=== PATIENT | female | born 1945 | race Caucasian/White ===

== ENCOUNTER → 2020-05-29 10:14 | Outpatient (CLI) | payer MEDICARE, SELFPAY | PROVIDERS: PCP Family Medicine; Referring Provider Ophthalmology; Visit Provider Ophthalmology | DX: H04.123 Dry eye syndrome of bilateral lacrimal glands (principal) | CPT/HCPCS: 36415 ==

== ENCOUNTER → 2020-09-20 10:40 | Outpatient (CLI) | payer MEDICARE, SELFPAY | LOC: PAVLAB 11:01 → LAB 11:03 | PROVIDERS: PCP Family Medicine; Referring Provider Ophthalmology; Visit Provider Ophthalmology | DX: H04.123 Dry eye syndrome of bilateral lacrimal glands (principal) | CPT/HCPCS: 36415 ==

== ENCOUNTER → 2021-02-13 10:10 | Outpatient (CLI) | payer MEDICARE, SELFPAY | PROVIDERS: PCP Family Medicine; Referring Provider Ophthalmology; Visit Provider Ophthalmology | DX: H04.123 Dry eye syndrome of bilateral lacrimal glands (principal) | CPT/HCPCS: 36415 ==

== ENCOUNTER 2021-06-25 09:39 | Outpatient (CLI) | payer MEDICARE, SELFPAY | END 2021-06-25 23:59 | disposition home or self-care (01) | LOC: LAB 09:40 | PROVIDERS: PCP Family Medicine; Referring Provider Ophthalmology; Visit Provider Ophthalmology | DX: H04.123 Dry eye syndrome of bilateral lacrimal glands (principal) | CPT/HCPCS: 36415 ==

== ENCOUNTER → 2021-11-01 | Outpatient (CLI) | payer MEDICARE, SELFPAY | END | disposition home or self-care (01) | LOC: LAB 10:23 | PROVIDERS: PCP Family Medicine; Referring Provider Ophthalmology; Visit Provider Ophthalmology | DX: H04.123 Dry eye syndrome of bilateral lacrimal glands (principal) | CPT/HCPCS: 36415 ==

== ENCOUNTER → 2022-03-20 | Outpatient (CLI) | payer MEDICARE, SELFPAY | END | disposition home or self-care (01) | LOC: LAB 09:48 | PROVIDERS: PCP Family Medicine; Visit Provider Ophthalmology | DX: Z01.00 Encounter for examination of eyes and vision without abnormal findings (principal) | CPT/HCPCS: 36415 ==

== ENCOUNTER → 2022-08-12 | Outpatient (CLI) | payer MEDICARE, SELFPAY | END | disposition home or self-care (01) | LOC: LAB 09:30 | PROVIDERS: PCP Family Medicine; Referring Provider Ophthalmology; Visit Provider Ophthalmology | DX: Z79.899 Other long term (current) drug therapy (principal) | CPT/HCPCS: 36415 ==

== ENCOUNTER 2022-12-24 10:08 | Outpatient (CLI) | payer MEDICARE, SELFPAY | END 2022-12-24 23:59 | disposition home or self-care (01) | LOC: LAB 10:09 | PROVIDERS: PCP Family Medicine; Referring Provider Ophthalmology; Visit Provider Ophthalmology | DX: H04.123 Dry eye syndrome of bilateral lacrimal glands (principal) ==

== ENCOUNTER → 2023-09-29 | Outpatient (CLI) | payer SELFPAY ==
[2023-09-29 11:41] LABS: SERUM TEARS COLLECTION SPECIMEN PROCESSED
== END | disposition home or self-care (01) ==
PROVIDERS: PCP Family Medicine; Referring Provider Ophthalmology; Visit Provider Ophthalmology
DX: H04.123 Dry eye syndrome of bilateral lacrimal glands (principal)
CPT/HCPCS: 36415

== ENCOUNTER → 2024-01-29 | Outpatient (CLI) | payer SELFPAY ==
[2024-01-29 12:09] LABS: SERUM TEARS COLLECTION SPECIMEN PROCESSED
== END | disposition home or self-care (01) ==
PROVIDERS: PCP Family Medicine; Referring Provider Ophthalmology; Visit Provider Ophthalmology
DX: H04.123 Dry eye syndrome of bilateral lacrimal glands (principal)
CPT/HCPCS: 36415

== ENCOUNTER → 2024-06-23 | Outpatient (CLI) | payer SELFPAY ==
[2024-06-23 11:58] LABS: SERUM TEARS COLLECTION SPECIMEN PROCESSED
== END | disposition home or self-care (01) ==
PROVIDERS: PCP Family Medicine; Referring Provider Ophthalmology; Visit Provider Ophthalmology
DX: Z00.00 Encounter for general adult medical examination without abnormal findings (principal)

== ENCOUNTER 2024-09-22 05:45 | Day surgery (SDC) | payer MEDICARE, SELFPAY ==
[2024-09-22] VITALS (7 sets, daily range): BP systolic 106–155; BP diastolic 69–81; PULSE 77–85; RESP 16–18; TEMP 36.4–37.1; O2SAT 97–100; BMI 21.4
--- OUTSIDE RECORDS SUMMARY | 2024-09-22 05:47 | XMS RPT_ITS | CCD ---
Author Organization [facility] Care Team Providers Care Library Cataloging Technician Name Role Phone MACI MACARIO DO Primary Care Physician [phone] MACI MACARIO DO Attending Unavailable MACI MACARIO DO Primary Care Unavailable MACI MACARIO DO Attending Unavailable MACI MACARIO DO Primary Care Unavailable MACI MACARIO DO Attending Unavailable MACI MACARIO DO Primary Care Unavailable MACI MACARIO DO Attending Unavailable MACI MACARIO DO Primary Care Unavailable MACI MACARIO DO Primary Care Physician [phone] MACI MACARIO DO Attending Unavailable AMIRAH NOBLE, MACI Primary Care Unavailable MACI MACARIO DO Attending Unavailable AMIRAH NOBLE, MACI Primary Care Unavailable MACI MACARIO DO Primary Care Unavailable ARA MCCARTHY Attending Unavailable Dr. Maci Macario DO Primary Care Provider [phone] Dr. Heath Baum MD Attending Provider Dr. Heath Baum MD Referring Provider [phone] Maci Macario Primary Care Unavailable Heath Baum Attending Unavailable Heath Baum Referring Unavailable Amirah, Maci Primary Care Unavailable Heath Baum Attending Unavailable Heath Baum Referring Unavailable Amirah, Maci Primary Care Unavailable Amirah, Maci Referring Unavailable Flakito Cloud Attending Unavailable Merry Vang Attending Unavailable Amirah, Maci Primary Care Unavailable Amirah, Maci Referring Unavailable Amirah Maci Primary Care Unavailable Heath Baum Attending Unavailable Heath Baum Referring Unavailable Allergies Allergy Classification Reported Allergen(s) Allergy Type Date of Onset Reaction(s) Facility (14 sources) Ciprofloxacin; Translations: [ciprofloxacin] Drug Allergy 08-16-19 17 Unknown, pseudomembrane colitis [facility] (15 sources) Penicillins; Translations: [penicillins] Drug allergy 08-16-19 17 Unknown, facial swelling [facility] (10 sources) Sulfonamides (Antibiotic); Translations: [sulfa drugs] Drug allergy vomiting, nausea [facility] (5 sources) Sulfonamides (Antibiotic); Translations: [Sulfa (Sulfonamide Antibiotics)] Allergy to substance 08-16-19 Unknown [facility] (1 source) Ciprofloxacin Drug Allergy 09-17-19 [facility] Repository Medications Current Medications Medication Drug Class(es) Dates Sig (Normalized) Sig (Original) acetaminophen 500 mg oral tablet (2 sources) Start: 06-10-2022 Tylenol Extra Strength 500 mg oral tablet Dose : 1,000 mg = 2 tab(s), Oral, TID, PRN as needed for pain Start Date: 06/10/22 Status: Ordered Start: 04-30-2022 End: 05-14-2022 take 1 tablet by mouth once daily acetaminophen 500 mg oral tablet Dose : 1,000 mg = 2 tab(s), Oral, TID, PRN as needed for pain, not to exceed 3000 mg/day, # 100 tab(s), 0 Refill(s), 05/14/22 6:52:00 EST, [facility]: [facility] #[id number], 167.6, cm, 04/29/22 13:19:00 EST, Height Start Date: 04/30/22 Stop Date: 05/14/22 Status: Ordered acetaminophen 250 mg / aspirin 250 mg / caffeine 65 mg oral tablet (6 sources) Platelet Aggregation Inhibitor, Nonsteroidal Anti-inflammatory Drug, Central Nervous System Stimulant, Methylxanthine Start: 06-30-2023 take 1 tablet by mouth every six hours as needed for headache Excedrin Extra Strength oral tab (250/250/65) Dose = 2 tab(s), Oral, q6hr, PRN for headache, # 50 tab(s), 0 Refill(s) Start Date: 06/30/23 Status: Ordered Start: 06-08-2017 take 1 tablet by yoni th every six hours as needed for headache Excedrin Extra Strength oral tab (250/250/65) Dose = 2 tab(s), Oral, q6h, PRN for headache, 0 Refill(s) Start Date: 06/08/17 Status: Ordered [id number] 200 actuat albuterol 0.09 mg/actuat metered dose inhaler (10 sources) beta2-Adrenergic Agonist Start: 01-29-2019 take 2 puff(s) by inhalation every six hours as needed for wheezing ProAir HFA MDI (90 mcg/inh) inhalation aerosol 2 puff(s), Inhalation, q6hr, PRN as needed for wheezing, 0 Refill(s) Start Date: 01/29/19 Status: Ordered Start: 01-29-2019 ProAir HFA MDI (90 mcg/inh) inhalation aerosol 0 Refill(s) Start Date: 01/29/19 Status: Ordered Start: 01-29-2019 ProAir HFA MDI (90 mcg/inh) inhalation aerosol 0 Refill(s) Start Date: 01/29/19 Status: Ordered aspirin 81 mg delayed release oral tablet (1 source) Platelet Aggregation Inhibitor, Nonsteroidal Anti-inflammatory Drug Start: 04-30-2022 End: 05-30-2022 take 1 tablet by mouth twice daily aspirin 81 mg oral delayed release tablet Dose : 81 mg = 1 tab(s), Oral, BID, Take 81 mg aspirin twice daily with food for 4 weeks postoperatively for DVT prophylaxis., # 60 tab(s), 0 Refill(s), [facility]: [facility] #[id number], 167.6, cm, 04/29/22 13:19:00 EST, Height Start Date: 04/30/22 Stop Date: 05/30/22 Status: Ordered Biotin (9 sources) Start: 09-17-2021 take 1 dose by mouth once daily biotin Dose : 1,000 mcg =, Oral, qDay, 0 Refill(s) Start Date: 09/17/21 Status: Ordered Start: 09-17-2021 biotin Oral, q Day, 0 Refill(s) Start Date: 09/17/21 Status: Ordered Clobetasol (9 sources) Corticosteroid Start: 09-17-2021 Clobetasol (Eqv-Temovate) 0.05% topical cream apply to affected area twice a day for 2 weeks WHEN FLARED, THEN USE 3 NIGHTS PER WEEK NEEDED Start Date: 09/17/21 Status: Ordered cyclobenzaprine hydrochloride 10 mg oral tablet (1 source) Muscle Relaxant Start: 02-01-2020 cyclobenzaprine 10 mg oral tablet Dose : 10 mg = 1 tab(s), Oral, TID, PRN for muscle spasm, 0 Refill(s) Start Date: 02/01/20 Status: Ordered dexamethasone 0.001 mg/mg / neomycin 0.0035 mg/mg / polymyxin b 10 unt/mg ophthalmic ointment (1 source) Aminoglycoside Antibacterial, Polymyxin-class Antibacterial, Corticosteroid Start: 04-29-2022 apply 1 dose into the eye(s) three times daily dexamethasone/neomyc in/polymyxin B 1 mg-3.5 mg-10,000 units/g ophthalmic ointment Dose = 1 walter, Ophthalmic, TID, 0 Refill(s) Start Date: 04/29/22 Status: Ordered docusate sodium 50 mg / sennosides, correction 8.6 mg oral tablet (1 source) Start: 04-30-2022 End: 05-03-2022 take 1 tablet by mouth twice daily Senokot S 50 mg-8.6 mg oral tablet Dose = 2 tab(s), Oral, BID, Take until first bowel movement, then as needed, X 3 day(s), # 12 tab(s), 0 Refill(s), Pharmacy: [facility] #[id number], 167.6, cm, 04/29/22 13:19:00 EST, Height Start Date: 04/30/22 Stop Date: 05/03/22 Status: Ordered erythromycin 0.005 mg/mg ophthalmic ointment (2 sources) Macrolide, Macrolide Antimicrobial Start: 06-30-2023 erythromycin 0.5% ophthalmic ointment 0 Refill(s) Start Date: 06/30/23 Status: Ordered esomeprazole 20 mg delayed release oral capsule (5 sources) Proton Pump Inhibitor Start: 12-12-2021 NexIUM 24HR 20 mg oral delayed release capsule Dose : 20 mg = 1 cap(s), Oral, qDay, 0 Refill(s) Start Date: 12/12/21 Status: Ordered fenofibrate 145 mg oral tablet (10 sources) Peroxisome Proliferator Receptor alpha Agonist Start: 06-30-2023 fenofibrate 145 mg oral tablet Dose : 145 mg = 1 tab(s), Oral, qDay, # 90 tab(s), 3 Refill(s), Pharmacy: [facility] #[id number], Hyperlipidemia, 167, cm, 06/30/23 11:05:00 EDT, Height, kg, 06/30/23 11:05:00 EDT, Dosing Weight Start Date: 06/30/23 Status: Ordered Start: 12-16-2022 fenofibrate 14 5 mg oral tablet Dose : 145 mg = 1 tab(s), Oral, qDay, # 90 tab(s), 1 Refill(s), Pharmacy: [facility] #[id number], Hyperlipidemia, 167.5, cm, 12/16/22 9:55:00 EDT, Height, kg, 12/16/22 9:55:00 EDT, Dosing Weight Start Date: 12/16/22 Status: Ordered Start: 08-21-2021 End: 07-22-2022 fenofibrate 145 mg oral tabl et Dose : 145 mg = 1 tab(s), Oral, with supper Start Date: 06/10/22 Status: Ordered Start: 02-18-2021 End: 03-20-2021 fenofibrate 145 mg oral tabl et Dose : 145 mg = 1 tab(s), Oral, qDay, # 30 tab(s), 0 Refill(s), [facility]acy: [facility] Hyperlipidemia, 168, cm, 12/11/20 13:21:00 EDT, Height, kg, 12/11/20 13:21:00 EDT, Dosing Weight Start Date: 02/18/21 Stop Date: 03/20/21 Status: Ordered fluticasone propionate 0.05 mg/actuat metered dose nasal spray (13 sources) Corticosteroid Start: 12-22-2023 take 1 dose nasal route twice daily fluticasone proprionate NASAL 50 mcg/ spray Dose = 1 spray(s), Nostril, each, BID, # 16 gram(s), 5 Refill(s), Pharmacy: [facility]/pharmacy #[id number], Seasonal allergies, 167.3, cm, 12/22/23 11:16:00 EDT, Height, kg, 12/22/23 11:16:00 EDT, Dosing Weight Start Date: 12/22/23 Status: Ordered Start: 06-16-2023 fluticasone 0. 05% topical cream See Instructions, Topical BID to affected area as needed, # 60 gram(s), 1 Refill(s), [facility]: [facility] #[id number], 167.5, cm, 12/16/22 9:55:00 EDT, Height, 62.7, kg, 12/16/22 9:55:00 EDT, Dosing Weight Start Date: 06/16/23 Status: Ordered Start: 01-27-2023 take 1 dose nasal ro helen twice daily fluticasone proprionate NASAL 50 mcg/ spray Dose = 1 spray(s), Nostril, each, BID, # 16 gram(s), 5 Refill(s), [facility]acy: [facility] #[id number], 167.5, cm, 12/16/22 9:55:00 EDT, Height, kg, 12/16/22 9:55:00 EDT, Dosing Weight Start Date: 01/27/23 Status: Ordered Start: 08-15-2022 fluticasone 0. 05% topical cream See Instructions, Topical BID to affected area as needed, # 60 gram(s), 1 Refill(s), [facility]acy: [facility] #[id number], 167.6, cm, 06/10/22 9:54:00 EST, Height, 63.6 Start Date: 08/15/22 Status: Ordered Start: 05-21-2022 take 1 dose nasal ro helen twice daily fluticasone 50 mcg/inh NASAL spray Dose = 1 spray(s), Nostril, each, BID, # 1 EA, 5 Refill(s), Pharmacy: [facility] #[id number], Seasonal allergies, 168, cm, 05/21/22 10:31:00 EST, Height, kg, 05/21/22 10:31:00 EST, Dosing Weight Start Date: 05/21/22 Status: Ordered Start: 08-21-2021 take 1 dose nasal ro helen twice daily fluticasone 50 mcg/inh NASAL spray Dose = 1 spray(s), Nostril, each, BID, # 1 EA, 5 Refill(s), Pharmacy: [address] Seasonal allergies, 167, cm, 06/13/21 11:01:00 EST, Height, kg, 06/13/21 11:01:00 EST, Dosing Weight Start Date: 08/21/21 Status: Ordered Start: 01-23-2020 fluticasone 0. 05% topical cream Apply 1 walter, Topical, qDay, # 15 gram(s), 0 Refill(s), Pharmacy: [address] Cream, 168, cm, 01/29/19 10:13:00 EDT, Height, 64.1, kg, 01/29/19 10:13:00 EDT, Dosing Weight Start Date: 01/23/20 Status: Ordered fluticasone 50 mcg/inh NASAL spray (1 source) Start: 02-18-2021 take 1 dose nasal route twice daily fluticasone 50 mcg/inh NASAL spray Dose = 1 spray(s), Nostril, each, BID, # 1 EA, 0 Refill(s), Pharmacy: [address] Seasonal allergies, 168, cm, 12/11/20 13:21:00 EDT, Height, kg, 12/11/20 13:21:00 EDT, Dosing Weight Start Date: 02/18/21 Status: Ordered guaiFENesin (10 sources) Start: 06-08-2017 take 1 tablet by mouth twice daily as needed for congestion Mucinex D 60 mg-600 mg oral tablet, extended release Dose = 1 tab(s), Oral, BID, PRN as needed for congestion, 0 Refill(s) Start Date: 06/08/17 Status: Ordered Start: 06-08-2017 take 1 tablet by yoni th twice daily Mucinex D 60 mg-600 mg oral tablet, extended release Dose = 1 tab(s), Oral, BID, 0 Refill(s) Start Date: 06/08/17 Status: Ordered ketoconazole 20 mg/ml medicated shampoo (7 sources) Azole Antifungal Start: 06-30-2023 ketoconazole 2% topical shampoo 0 Refill(s), 62.7 Start Date: 06/30/23 Status: Ordered Start: 09-17-2021 ketoconazole 2 % topical shampoo WASH THE SCALP ONCE DAILY, LETTING SIT ON THE SCALP FOR 3 TO 5 WA... (REFER TO PRESCRIPTION NOTES). Start Date: 09/17/21 Status: Ordered ketotifen 0.25 mg/ml ophthalmic solution (4 sources) Histamine-1 Receptor Inhibitor Start: 12-16-2022 take 1 drop(s) into the eye(s) every eight hours Alaway 0.025% ophthalmic solution drop(s), q8h, 0 Refill(s) Start Date: 12/16/22 Status: Ordered levocetirizine dihydrochloride 5 mg oral tablet (2 sources) Histamine-1 Receptor Antagonist Start: 12-12-2021 Xyzal 5 mg oral tablet Dose : 2.5 mg = 0.5 tab(s), Oral, qHS, # 45 tab(s), 0 Refill(s) Start Date: 12/12/21 Status: Ordered melatonin 1 mg oral tablet (7 sources) Start: 06-30-2023 melatonin 1 mg oral tablet Dose : 2 mg = 2 tab(s), Oral, qHS, PRN as needed for insomnia, # 90 tab(s), 0 Refill(s) Start Date: 06/30/23 Status: Ordered Start: 06-13-2021 melatonin 1 mg oral tablet Dose : 1 mg = 1 tab(s), Oral, qHS, PRN as needed for insomnia, # 90 tab(s), 0 Refill(s) Start Date: 06/13/21 Status: Ordered Misc Medication (9 sources) Start: 04-08-2022 Misc Medicatio n 1 drop, Eyes, both, QID, autologous eye drops for eye drops, 0 Refill(s), 65.3 Start Date: 04/08/22 Status: Ordered Start: 04-08-2022 Misc Medicatio n autologous eye drops for eye drops, 0 Refill(s), 65.3 Start Date: 04/08/22 Status: Ordered Start: 02-01-2020 Misc Medicatio n Occuvite Lutein once daily, 0 Refill(s), 64.1 Start Date: 02/01/20 Status: Ordered Multi Vitamin+ (10 sources) Start: 06-08-2017 take 1 tablet by yoni th once daily Multi Vitamin+ 1 tab, Oral, Daily, 0 Refill(s) Start Date: 06/08/17 Status: Ordered Start: 06-08-2017 Multi Vitamin+ 0 Refill(s) Start Date: 06/08/17 Status: Ordered omeprazole 20 mg delayed release oral tablet (3 sources) Proton Pump Inhibitor Start: 06-30-2023 PriLOSEC OTC 20 mg oral delayed release tablet Dose : 20 mg = 1 tab(s), Oral, qDayAC, 0 Refill(s) Start Date: 06/30/23 Status: Ordered Start: 10-26-2020 take 1 mg by mouth once daily PriLOSEC OTC 20 mg oral delayed release tablet mg = tab(s), Oral, qDay, 0 Refill(s) Start Date: 10/26/20 Status: Ordered Osteo Bi-Flex Advanced oral tablet (2 sources) Start: 06-30-2023 take 1 tablet by mouth once daily at mealtime Osteo Bi-Flex Advanced oral tablet Dose = 1 tab(s), Oral, Daily, 0 Refill(s), Take with food Start Date: 06/30/23 Status: Ordered Osteo Bi-Flex Triple Strength (6 sources) Start: 06-08-2017 take 1 tablet by mouth once daily Osteo Bi-Flex Triple Strength 1 tablet, Oral, Daily, 0 Refill(s) Start Date: 06/08/17 Status: Ordered Start: 06-08-2017 Osteo Bi-Flex Triple Strength 0 Refill(s) Start Date: 06/08/17 Status: Ordered Polyethylene Glycol 400 / Propylene glycol (6 sources) Start: 02-01-2020 Systane ophtha lmic solution Dose = 1 drop(s), Ophthalmic, q1h, PRN for dry eyes, Preservative Free, # 30 mL, 0 Refill(s) Start Date: 02/01/20 Status: Ordered Start: 02-01-2020 take 1 dose into the eye(s) twice daily as needed Systane ophthalmic solution Dose = 1 drop(s), Ophthalmic, BID, PRN for dry eyes, # 30 mL, 0 Refill(s) Start Date: 02/01/20 Status: Ordered PreserVision AREDS (4 sources) Start: 04-23-2021 take 1 capsule by mouth twice daily PreserVision AREDS Dose = 1 cap(s), Oral, BID, 0 Refill(s) Start Date: 04/23/21 Status: Ordered PreserVision AREDS 2 oral capsule (2 sources) Start: 06-30-2023 take 1 capsule by mouth twice daily PreserVision AREDS 2 oral capsule Dose = 1 cap(s), Oral, BID, # 60 cap(s), 0 Refill(s) Start Date: 06/30/23 Status: Ordered traMADol hydrochloride 50 mg oral tablet (1 source) Opioid Agonist Start: 04-30-2022 End: 05-07-2022 take 1-2 tablets by mouth every six hours Ultram 50 mg oral tablet See Instructions, 1-2 tab(s) Oral q6h, # 48 tab(s), 0 Refill(s), 05/07/22 6:54:00 EST, Pharmacy: [facility] #[id number], S/P total left hip arthroplasty, 167.6, cm, 04/29/22 13:19:00 EST, Height, 64 Start Date: 04/30/22 Stop Date: 05/07/22 Status: Ordered Completed/Discontinued Medications Medication Drug Class(es) Dates Sig (Normalized) Sig (Original) alendronic acid 70 mg oral tablet (10 sources) Bisphosphonate Start: 12-22-2023 take 6-8 [oz_av] by mouth once daily Fosamax 70 mg oral tablet Dose : 70 mg = 1 tab(s), Oral, Thursday, with 6-8 oz plain water, at least 30 minutes before first food, beverage, or medication of the day, # 13 tab(s), 1 Refill(s), Pharmacy: [facility]/pharmacy #[id number], Osteopenia, 167.3, cm, 12/22/23 11:16:00 EDT, Height, kg, 12/22/23 11:16:00 EDT, Dosing Weight Start Date: 12/22/23 Status: Ordered Start: 12-16-2022 take 6-8 [oz_av] by mouth once daily Fosamax 70 mg oral tablet Dose : 70 mg = 1 tab(s), Oral, Thursday, with 6-8 oz plain water, at least 30 minutes before first food, beverage, or medication of the day, # 5 tab(s), 11 Refill(s), Pharmacy: [facility] #[id number], Osteopenia, 167.5, cm, 12/16/22 9:55:00 EDT, Height, kg, 12/16/22 9:55:00 EDT, Dosing Weight Start Date: 12/16/22 Status: Ordered Start: 06-10-2022 Fosamax 70 mg oral tablet Dose : 70 mg = 1 tab(s), Oral, Thursday Start Date: 06/10/22 Status: Ordered Start: 12-12-2021 alendronate 70 mg oral tablet Dose : 70 mg = 1 tab(s), Oral, qWeek, # 13 tab(s), 3 Refill(s), Pharmacy: [facility] #[id number], Osteopenia, 167.5, cm, 12/12/21 10:05:00 EDT, Height, kg, 12/12/21 10:05:00 EDT, Dosing Weight Start Date: 12/12/21 Status: Ordered Start: 02-01-2020 take 1 tablet by yoni th every week alendronate 70 mg oral tablet See Instructions, take 1 tablet by mouth every week, # 12 tab(s), 3 Refill(s), Pharmacy: [facility] Osteopenia, 168.5, cm, 02/01/20 10:25:00 EDT, Height, kg, 02/01/20 10:25:00 EDT, Dosing Weight Start Date: 02/01/20 Status: Ordered amitriptyline hydrochloride 10 mg oral tablet (1 source) Tricyclic Antidepressant Start: 08-01-2020 End: 01-28-2021 amitriptyline 10 mg oral tablet Dose : 10 mg = 1 tab(s), Oral, qHS, # 30 tab(s), 5 Refill(s), Pharmacy: [facility] Migraine, 168, cm, 08/01/20 10:06:00 EDT, Height, kg, 08/01/20 10:06:00 EDT, Dosing Weight Start Date: 08/01/20 Stop Date: 01/28/21 Status: Ordered metroNIDAZOLE 0.0075 mg/mg topical gel (7 sources) Nitroimidazole Antimicrobial Start: 06-30-2023 metroNIDAZOLE 0.75% topical gel Apply 1 walter, Topical, BID, 0 Refill(s), 62.7 Start Date: 06/30/23 Status: Ordered Start: 01-23-2022 metroNIDAZOLE 1% topical gel Apply 1 walter, Topical, qDay, PRN Rash, apply topically to affected area once daily Start Date: 01/23/22 Status: Ordered Start: 10-31-2020 MetroGel 1% to pical gel Apply 1 walter, Topical, qDay, # 60 gram(s), 1 Refill(s), [facility] [address] Gel, 168.1, cm, 10/31/20 10:38:00 EDT, Height, 63, kg, 10/31/20 10:38:00 EDT, Dosing Weight Start Date: 10/31/20 Status: Ordered Problems Active Problems Problem Classification Problem Date Documented Date Episodic/Chronic Allergic reactions (10 sources) Contact dermatitis 06-10-2017 Episodic Chronic kidney disease (3 sources) Chronic kidney disease; Translations: [Chronic kidney disease, unspecified] Onset: 04-30-2022 Chronic Conditions associated with dizziness or vertigo (9 sources) Dizziness 09-17-2021 Episodic Disorders of lipid metabolism (10 sources) Hyperlipidemia 02-01-2020 Chronic Esophageal disorders (11 sources) Gastroesophageal reflux disease without esophagitis; Translations: [Gastro-esophageal reflux disease without esophagitis] Onset: 04-30-2022 08-01-2020 Chronic Headache; including migraine (10 sources) Migraine 06-10-2017 Chronic Nutritional deficiencies (2 sources) Vitamin D deficiency 12-22-2023 Chronic Osteoarthritis (12 sources) Arthritis; Translations: [Osteoarthritis] Onset: 04-30-2022 06-10-2017 Chronic Other aftercare (1 source) Follow-up orthopedic assessment; Translations: [Aftercare following joint replacement surgery] Chronic Other bone disease and musculoskeletal deformities (10 sources) Osteopenia 02-01-2020 Episodic Other circulatory disease (9 sources) Elevated blood-pressure reading without diagnosis of hypertension 06-13-2021 Episodic Other circulatory disease (4 sources) Carotid bruit 12-16-2022 Episodic Other connective tissue disease (2 sources) Hip joint prosthesis present; Translations: [Presence of unspecified artificial hip joint] Onset: 04-30-2022 Chronic Other inflammatory condition of skin (10 sources) Rosacea 08-01-2020 Chronic Other non-traumatic joint disorders (8 sources) Hip pain 04-08-2022 Episodic Other screening for suspected conditions (not mental disorders or infectious disease) (9 sources) Viral screening status 12-12-2021 Episodic Other skin disorders (9 sources) Eruption 04-23-2021 Episodic Other skin disorders (9 sources) Skin lesion 06-13-2021 Episodic Other upper respiratory disease (12 sources) Seasonal allergic rhinitis; Translations: [Other seasonal allergic rhinitis] Onset: 04-29-2022 06-10-2017 Chronic Other upper respiratory infections (10 sources) Acute sinusitis 08-02-2020 Episodic Residual codes; unclassified (10 sources) Needs influenza immunization 02-01-2020 Episodic Residual codes; unclassified (10 sources) Requires vaccination 12-11-2020 Episodic Residual codes; unclassified (8 sources) Preoperative state 04-08-2022 Episodic Spondylosis; intervertebral disc disorders; other back problems (10 sources) Backache 06-10-2017 Episodic Unclassified (6 sources) Cholesterol (substance) 06-10-2017 Comment on above: High cholesterol Unclassified (20 sources) Patient encounter status 12-11-2020 Unclassified (8 sources) Influenza vaccination status 04-08-2022 Unclassified (2 sources) Body mass index 20-24 - normal 12-22-2023 Unclassified (2 sources) Never used tobacco 12-22-2023 Past or Other Problems Problem Classification Problem Date Documented Da te Episodic/Chronic Other eye disorders (1 source) Dry eye syndrome of bilateral lacrimal glands; Translations: [Dry eye syndrome of bilateral lacrimal glands] Onset: 02-23-2024 Episodic Results Test Name Value Interpretation Reference Range Facility Gastroenterology Visit Repor ton 07-14-2024 Gastroenterology Visit Report [facility] [address] [place] [address] OFFICE VISIT Date of Service: 07/14/24 MR#: [id number] Acct: [id number] Name: SAMANTHA HILL Rep #: [id number] 3 : 1945 Provider: FLACA Liu Age/Sex: 78/F Location: [facility] Status: Signed Intake Intake Visit Reasons: MELENA Chief Complaint: proctocolitis Allergies ciprofloxacin Allergy (Verified 08/15/16 14:50) Unknown Penicillins Allergy (Verified 08/15/16 14:50) Unknown Sulfa (Sulfonamide Antibiotics) Allergy (Verified 08/15/16 14:50) Unknown Medications ???Medication ???Instructions ???Recorded ???Confirmed ???Type albuterol sulfate 90 mcg/actuation 1 inh inhalation Q4-6H PRN 07/1407/14/24 History breath activated powder inhaler alendronate 70 mg tablet 70 mg PO QWEEK 07/14/24 07/14/24 H istory biotin 10,000 mcg capsule mcg PO 07/14/24 07/14/24 History esomeprazole magnesium 20 mg 20 mg PO QDAY 07/14/24 07/14/24 Hi story tablet,delayed release (Nexium 24HR) fenofibrate nanocrystallized 145 145 mg PO QDAY 07/14/24 07/14/24 H istory mg tablet fluticasone propionate 50 1 spray intranasal BID 07/14/24 History mcg/actuation nasal spray,suspension glucosamine [id number] 1 tab PO QDAY 07/14/24 07/14/24 Hi story pito 1,500 mg-400 unit-100 mg tablet (Osteo Bi-Flex (5-Loxin)) guaifenesin 600 mg tablet, 600 mg PO Q12H PRN 07/14/24 History extended release 12 hr (Mucinex) omeprazole magnesium 20 mg 20 mg PO QDAY PRN 07/14/24 5 History tablet,delayed release (Prilosec OTC) vit C 250 mg-vit E 90 mg-zinc 40 1 tab PO BID 07/14/24 07/14/24 His tory mg-copper 1 ax-loofxr-eyocuy capsule (PreserVision AREDS-2) Patient : No Have you fallen in the past year?: Yes Nurse's Note: OV 07.14.24 Pt here to establish care with [facility]. Pt reports 1 episode of diarrhea, and blood in her stools. Pt report loose stools daily. Prior hx of EGD over 30yrs ago and colonoscopy five years ago. Pt reports she still has gallbladder. Pt takes OTC Nexium and Prilosec daily. Denies n/v/c, abdominal pain, dizziness and swelling. Pt reports a colectomy in 1992. HPI HPI Chief Complaint: proctocolitis Details: SAMANTHA HILL, is a 78 F who presents to the office today for establishment with [facility]. *[place] [facility] 06.28.24 for bright red blood in her stool. Prescribed a course of antibiotics for proctocolitis and discharged CT abd/pelvis .03.14; Distal sigmoid and diffuse rectal wall thickening with adjacent soft tissue standing. Findings likely reflect proctocolitis. no drainable fluid collection. Lower ventral abd wall bowel containing hernia without evidence of bowel obstruction. Pt here today for f/u after ED visit for proctocolitis. Pt admits to one day of blood in her stool. She called PCP who recommended presentation to the ED. She is now off the antibiotic. She has had no further episodes of bleeding. 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 Since then she has had looser stools but no other issues with her bowels. Her last colonoscopy was about 5-7 years ago with one polyp. She does take Excedrin on a daily basis for her chronic migraines. She endorses chronic heartburn and has been on PPI for many years. SHe is unsure if she has had an EGD in the past. ROS Const Constitutional: No anorexia, fatigue, fever(s), weight change or sleep problems Eyes Eyes: No change in vision ENT ENT: No abnormal hearing, difficulty swallowing, mouth lesions, tongue swelling or throat swelling Resp Respiratory: No cough or shortness of breath Cardio Cardiology: No chest pain at rest, chest pain with exertion, shortness of breath or dyspnea on exertion Gastro GI: No difficulty swallowing Genitourinary-Female : No difficulty urinating or burning urination Musc Musculoskeletal: No joint pain, joint swelling, muscle weakness or decreased muscle mass Skin Skin: No hair loss in leg, yellowing of the eye, itchy eyes, rash, skin ulcer or skin swelling Neuro Neurology: No abnormal hearing, abnormal movements, confusion, unsteady gait/balance or memory loss Psych Psychiatric: No anxiety, No confusion and No memory loss Endo Endocrine: No fatigue or weight change Aller/Imm Allergy/Immunologic: No itchy eyes, throat swelling or tongue swelling Gus/Lymp Hematologic/Lymphati c: No easy bleeding, easy bruising or enlarged lymph nodes Exam Const General: cooperative and comfortable Nutritional Appearance: average body habitus and well nourished [facility] Head: normal to inspection Ears: hearing grossly normal bilaterally Nose: external nose normal Face and sinus: normal facial exam Eyes General: appearance normal, both eyes and all related structures Neck Neck (more content not included)... Normal [facility] .Auto Diffon 06-28-2024 Basophil, Absolute 0.0 10 3/mcL Normal 0.0-0.2 [facility] Comment on above: Performed By: #### M DW, GFR, CBC, ADIFF, ANEU, APTT, PRO, BMP #### [address] [address] Basophils/100 WBC (Bld) 0.3 % Normal 0.0-2.5 [facility] Comment on above: Performed By: #### M DW, GFR, CBC, ADIFF, ANEU, APTT, PRO, BMP #### [address] [address] Eosinophil, Absolute 0.1 10 3/mcL Normal 0.0-0.7 [facility] Comment on above: Performed By: #### M DW, GFR, CBC, ADIFF, ANEU, APTT, PRO, BMP #### [address] [address] Eosinophils/100 WBC (Bld) 0.7 % Normal 0.0-7.0 [facility] Comment on above: Performed By: #### M DW, GFR, CBC, ADIFF, ANEU, APTT, PRO, BMP #### [address] [address] Lymphocyte, Absolute 0.2 10 3/mcL Low 0.9-4.3 [facility] Comment on above: Performed By: #### M DW, GFR, CBC, ADIFF, ANEU, APTT, PRO, BMP #### [address] [address] Lymphocytes/100 WBC (Bld) 3.1 % Low 20.0-40.0 [facility] Comment on above: Performed By: #### M DW, GFR, CBC, ADIFF, ANEU, APTT, PRO, BMP #### [address] [address] Monocyte, Absolute 0.5 10 3/mcL Normal 0.1-1.4 [facility] Comment on above: Performed By: #### M DW, GFR, CBC, ADIFF, ANEU, APTT, PRO, BMP #### [address] [address] Monocytes/100 WBC (Bld) 6.6 % Normal 2.0-13.0 [facility] Comment on above: Performed By: #### M DW, GFR, CBC, ADIFF, ANEU, APTT, PRO, BMP #### [address] [address] Neutrophils/100 WBC (Bld) 89.3 % High 50.0-75.0 [facility] Comment on above: Performed By: #### M DW, GFR, CBC, ADIFF, ANEU, APTT, PRO, BMP #### [address] [address] .GFRon 06-28-2024 Estimated Glomerular Filtration Rate 40 ml/min/1.73sqm Normal [facility] Comment on above: Result Comment: Stages of Chronic Kidney Disease (CKD) Stage Description eGFR(ml/min/1.73 sq.m.) CKD 1 Normal kidney function or >=90 normal kindney function with possible kidney damage (ex. Proteinuria) CKD 2 Kidney damage with mild loss 60-89 of kidney function CKD 3a Mild to moderate loss of kidney 45-59 function CKD 3b Moderate to severe loss of 30-44 of kindey function CKD 4 Severe loss of kidney function 15-29 CKD 5 Kidney failure <15 Note: (go live 2024) the eGFR calculation was updated to the 2020 CKD-EPI creatinine equation without a race factor to calculate the eGFR results. Performed By: #### M DW, GFR, CBC, ADIFF, ANEU, APTT, PRO, BMP ####[address] [address] .MDWon 06-28-2024 Monocyte Distribution Width 17.85 Normal 0.00-20.00 [facility] Comment on above: Result Comment: For ED adult patients suspected of sepsis, MDW<=20.0 does not rule out sepsis or risk of sepsis Performed By: #### M DW, GFR, CBC, ADIFF, ANEU, APTT, PRO, BMP ####[address] [address] .NEUABSon 06-28-2024 Neutrophil, Absolute 6.9 10 3/mcL Normal 2.3-8.1 [facility] Comment on above: Performed By: #### M DW, GFR, CBC, ADIFF, ANEU, APTT, PRO, BMP #### [address] [address] APTTon 06-28-2024 aPTT Coag (Bld) [Time] 30.3 s Normal 25.0-35.0 [facility] Comment on above: Result Comment: For Heparin anticoagulation therapy, the recommended therapeutic range is: 45.4-75.9 seconds. Patients on heparin therapy may have an extreme result. Performed By: #### M DW, GFR, CBC, ADIFF, ANEU, APTT, PRO, BMP ####[address] [address] BMPon 06-28-2024 BUN/Creatinine Ratio 18 ratio Normal 7-27 [facility] Comment on above: Performed By: #### M DW, GFR, CBC, ADIFF, ANEU, APTT, PRO, BMP ####[address] [address] Calcium [Mass/Vol] 9.1 mg/dL Normal 8.4-10.2 [facility] Comment on above: Performed By: #### M DW, GFR, CBC, ADIFF, ANEU, APTT, PRO, BMP ####[address] [address] Chloride [Moles/Vol] 103 mmol/L Normal 98-107 [facility] Comment on above: Performed By: #### M DW, GFR, CBC, ADIFF, ANEU, APTT, PRO, BMP ####[address] [place], [place] [address] CO2 [Moles/Vol] 28 mmol/L Normal 23-31 [facility] Comment on above: Performed By: #### M DW, GFR, CBC, ADIFF, ANEU, APTT, PRO, BMP ####[address] [place], [place] [address] Creatinine [Mass/Vol] 1.35 mg/dL High 0.55-1.02 [facility] Comment on above: Result Comment: Test ing performed on Shareable Social Dimension EXL analyzer using a modified kinetic Yahaira technique. Performed By: #### M DW, GFR, CBC, ADIFF, ANEU, APTT, PRO, BMP ####[address] [place], [place] [address] Electrolyte Balance 5.0 mEq/L Normal 4.0-15.0 [facility] Comment on above: Performed By: #### M DW, GFR, CBC, ADIFF, ANEU, APTT, PRO, BMP ####[address] [place], [place] [address] Glucose [Mass/Vol] 95 mg/dL Normal 83-110 [facility] Comment on above: Performed By: #### M DW, GFR, CBC, ADIFF, ANEU, APTT, PRO, BMP ####[address] [place], [place] [address] Potassium [Moles/Vol] 4.2 mmol/L Normal 3.5-5.1 [facility] Comment on above: Performed By: #### M DW, GFR, CBC, ADIFF, ANEU, APTT, PRO, BMP ####[address] [place], [place] [address] Sodium [Moles/Vol] 136 mmol/L Normal 136-145 [facility] Comment on above: Performed By: #### M DW, GFR, CBC, ADIFF, ANEU, APTT, PRO, BMP ####[address] [place], [place] [address] Urea nitrogen [Mass/Vol] 24 mg/dL High 7-18 [facility] Comment on above: Performed By: #### M DW, GFR, CBC, ADIFF, ANEU, APTT, PRO, BMP ####[place] [address] CBCon 06-28-2024 Erythrocyte distribution width (RBC) [Ratio] 14.0 % Normal 11.5-15.5 [facility] Comment on above: Performed By: #### M DW, GFR, CBC, ADIFF, ANEU, APTT, PRO, BMP #### [place] [address] Hematocrit (Bld) [Volume fraction] 36.0 % Normal 34.0-46.0 [facility] Comment on above: Performed By: #### M DW, GFR, CBC, ADIFF, ANEU, APTT, PRO, BMP #### [place] [address] Hgb 12.4 G/dL Normal 12.0-16.0 [facility] Comment on above: Performed By: #### M DW, GFR, CBC, ADIFF, ANEU, APTT, PRO, BMP #### [place] [address] MCH (RBC) [Entitic mass] 30.6 pg Normal 27.0-33.0 [facility] Comment on above: Performed By: #### M DW, GFR, CBC, ADIFF, ANEU, APTT, PRO, BMP #### [place] [address] MCHC 34.6 G/dL Normal 32.0-36.0 [facility] Comment on above: Performed By: #### M DW, GFR, CBC, ADIFF, ANEU, APTT, PRO, BMP #### [place] [address] MCV (RBC) [Entitic vol] 88.4 fL Normal 80.0-99.0 [facility] Comment on above: Performed By: #### M DW, GFR, CBC, ADIFF, ANEU, APTT, PRO, BMP #### [place] [id number] Platelet 215 10 3/mcL Normal 150-450 [facility] Comment on above: Performed By: #### M DW, GFR, CBC, ADIFF, ANEU, APTT, PRO, BMP #### [place] [address] [place], [place] [address] Platelet mean volume (Bld) [Entitic vol] 7.0 fL Normal 6.6-10.5 [facility] Comment on above: Performed By: #### M DW, GFR, CBC, ADIFF, ANEU, APTT, PRO, BMP #### [place] [address] [place], [place] [address] RBC 4.07 10 6/mcL Low 4.10-5.30 [facility] Comment on above: Performed By: #### M DW, GFR, CBC, ADIFF, ANEU, APTT, PRO, BMP #### [place] [address] [place], [place] [address] WBC 7.7 10 3/mcL Normal 4.5-10.8 [facility] Comment on above: Performed By: #### M DW, GFR, CBC, ADIFF, ANEU, APTT, PRO, BMP #### [place] [address] [place], [place] [address] CT ABD/PELVIS W/ IV CONTRAST ONLYon 06-28-2024 CT ABD/PELVIS W/ IV CONTRAST ONLY ORIGINAL EXAMINATION: CT OF THE ABDOMEN AND PELVIS WITH CONTRAST06/28/2024 6:23 pm TECHNIQUE: CT of the abdomen and pelvis was performed with the administration of intravenous contrast. Multiplanar reformatted images are provided for review. Automated exposure control, iterative reconstruction, and/or weight based adjustment of the mA/kV was utilized to reduce the radiation dose to as low as reasonably achievable. COMPARISON: None available HISTORY: ORDERING SYSTEM PROVIDED HISTORY: Reason for Exam: pain, rectal bleeding, hx colectomy FINDINGS: Provided images of the lower thorax are unremarkable. The liver is unremarkable in size, contour, and attenuation. There is no intra or extrahepatic biliary duct dilation. No focal mass identified. The gallbladder, pancreas, spleen, and bilateral adrenal glands are unremarkable. The kidneys enhance symmetrically. There is no hydronephrosis. There is some limitation through the pelvis secondary to hardware artifact in the setting of bilateral hip prostheses. There is distal sigmoid and diffuse rectal wall thickening with adjacent soft tissue stranding. Given limitations with lack of oral contrast, no drainable fluid collection. No free intraperitoneal air. There is lower ventral abdominal wall bowel containing hernia without evidence of bowel obstruction. No air-fluid levels or small bowel dilatation. The aorta is nonaneurysmal. No pathologically enlarged lymph nodes are identified. The urinary bladder is without wall thickening or focal mass. The uterus is surgically absent versus atrophic. No suspicious osteolytic or osteoblastic lesions are identified. There are degenerative changes of the spine. Lower thoracic vertebral hemangioma is noted. IMPRESSION: 1. Distal sigmoid and diffuse rectal wall thickening with adjacent soft tissue stranding. Findings likely reflect proctocolitis. No drainable fluid collection or free intraperitoneal air. 2. Lower ventral abdominal wall bowel containing hernia without evidence of bowel obstruction. Interpreted by: Romulo Taveras DO Preliminary Report By: Romulo Taveras DO Electronically signed By Romulo Taveras DO Dictated Date: 06/28/2024 7:36:52 PM Prelim Date: 06/28/2024 7:40:37 PM Sign Date: 06/28/2024 7:40:37 PM Ordering Provider: JOSÉ MIGUEL MCGINNIS Normal [facility] PROon 06-28-2024 PT Coag (PPP) [Time] 12.3 s Normal 9.0-14.4 [facility] Comment on above: Performed By: #### M DW, GFR, CBC, ADIFF, ANEU, APTT, PRO, BMP ####[place] [address] [place], [place] [address] PT International Ratio 1.1 Normal [facility] Comment on above: Result Comment: The [employer] (CHEST, 1992, 102:312S-25S) recommended therapeutic range for oral anticoagulant therapy is: LOW RISK: Prophylaxis of venous thrombosis INR: 2.0-3.0 Treatment of pulmonary embolism 2.0-3.0 Prevention of systemic embolism 2.0-3.0 HIGH RISK: Mechanical prosthetic valves 2.5-3.5 Performed By: #### M DW, GFR, CBC, ADIFF, ANEU, APTT, PRO, BMP ####[address] [place], [place] [address] MA MAMMOGRAM SCREENING BILAT ERAL W/TOMOon 03-03-2024 MA MAMMOGRAM SCREENING BILATERAL W/FERNANDO ORIGINAL FROM: SHILA SMITH [address] [place], [place] [address] PROCEDURE FOR: SAMANTHA HILL [address] [place] [address] Home: PID#: [id number] Exam#: [id number] : 1945 Age: 78 TO: MACI MACARIO DO [address] [address] Fax: NO FAX EXAMINATION: SCREENING DIGITAL BILATERAL MAMMOGRAM WITH TOMOSYNTHESIS, 03/03/2024 11:22 am TECHNIQUE: Screening mammography of the bilateral breasts was performed with tomosynthesis. 2D standard and 3D tomosynthesis combination imaging performed through both breasts in the MLO and CC projection. Computer aided detection was utilized in the interpretation of this exam. COMPARISON: 03/02/2023, 02/27/2022 HISTORY: Breast cancer screening. FINDINGS: BREAST DENSITY: The breasts are heterogeneously dense, which may obscure small masses. There are no significant masses or calcifications. IMPRESSION: No mammographic evidence of malignancy. Continued screening with annual mammograms is recommended. Gavi Bourgeoisck risk calculations, generated with the history provided, report this patient's lifetime risk for developing breast cancer at 9.4%. Based on this assessment tool, if the patient's calculated lifetime risk is below 20%, then the patient is considered at average risk for developing breast cancer. If the patient's calculated lifetime risk is at or above 20%, then the patient is considered high risk for developing breast cancer and may be a candidate for supplemental breast MRI screening in addition to annual mammographic screening per the [employer]. BIRADS: BI-RADS: 1: Negative RECALL: 1 year screening RECALL TYPE: mammo LETTER SENT: Normal BI-RADS 1 and 2 Interpreted by: Romulo Jensen MD Preliminary Report By: Romulo Jensen MD Electronically signed By Romulo Jensen MD Dictated Date: 03/03/2024 7:16:47 PM Prelim Date: 03/03/2024 7:20:07 PM Sign Date: 03/03/2024 7:20:07 PM Ordering Provider: MACI MACARIO Collision Technician: OMAR CESAR(Jaime)(M)(CT) letter sent: Normal BI-RADS 1 and 2 Mammogram BI-RADS: 1 Negative Normal [facility] .GFRon 12-29-2023 GFR Non- 45 ml/min/1.73sqm [facility] Comment on above: Result Comment: GFR Population mean for , Non- Americans Ages 20-29 = 116 mL/min/1.73 sq.m. Ages 30-39 = 107 mL/min/1.73 sq.m. Ages 40-49 = 99 mL/min/1.73 sq.m. Ages 50-59 = 93 mL/min/1.73 sq.m. Ages 60-69 = 85 mL/min/1.73 sq.m. Ages 70+ = 75 mL/min/1.73 sq.m. Chronic Kidney Disease: Less than 60 mL/min/1.73 square meters End Stage Renal Disease: Less than 15 mL/min/1.73 square meters Performed By: #### T SH, LIPID, VIDH, GFR, CMP #### [address] [address] GFR 55 ml/min/1.73sqm [facility] Comment on above: Result Comment: GFR Population mean for , Non- Americans Ages 20-29 = 116 mL/min/1.73 sq.m. Ages 30-39 = 107 mL/min/1.73 sq.m. Ages 40-49 = 99 mL/min/1.73 sq.m. Ages 50-59 = 93 mL/min/1.73 sq.m. Ages 60-69 = 85 mL/min/1.73 sq.m. Ages 70+ = 75 mL/min/1.73 sq.m. Chronic Kidney Disease: Less than 60 mL/min/1.73 square meters End Stage Renal Disease: Less than 15 mL/min/1.73 square meters Performed By: #### T SH, LIPID, VIDH, GFR, CMP #### [address] [address] CMPon 12-29-2023 Albumin Level 4.1 G/dL Normal 3.4-4.8 [facility] Comment on above: Performed By: #### T SH, LIPID, VIDH, GFR, CMP #### [address] [address] Albumin/Globulin [Mass ratio] 1.6 {ratio} Normal 1.1-2.5 [facility] Comment on above: Performed By: #### T SH, LIPID, VIDH, GFR, CMP #### [address] [address] ALP [Catalytic activity/Vol] 66 U/L Normal 40-135 [facility] Comment on above: Performed By: #### T SH, LIPID, VIDH, GFR, CMP #### [address] [address] ALT [Catalytic activity/Vol] 24 U/L Normal 14-59 [facility] Comment on above: Performed By: #### T SH, LIPID, VIDH, GFR, CMP #### [address] [address] AST [Catalytic activity/Vol] 20 U/L Normal 10-40 [facility] Comment on above: Performed By: #### T SH, LIPID, VIDH, GFR, CMP #### [address] [address] Bili Total 0.7 mg/dL Normal 0.2-1.0 [facility] Comment on above: Result Comment: Use of this assay is not recommended for patients undergoing treatment with eltrombopag due to the potential for falsely elevated results. Performed By: #### T SH, LIPID, VIDH, GFR, CMP #### [address] [address] BUN/Creatinine Ratio 16 ratio Normal 7-27 [facility] Comment on above: Performed By: #### T SH, LIPID, VIDH, GFR, CMP #### [address] [address] Calcium [Mass/Vol] 9.7 mg/dL Normal 8.4-10.2 [facility] Comment on above: Performed By: #### T SH, LIPID, VIDH, GFR, CMP #### [place] [address] Chloride [Moles/Vol] 103 mmol/L Normal 98-107 [facility] Comment on above: Performed By: #### T SH, LIPID, VIDH, GFR, CMP #### [place] [address] CO2 [Moles/Vol] 33 mmol/L High 23-31 [facility] Comment on above: Performed By: #### T SH, LIPID, VIDH, GFR, CMP #### [place] [address] Creatinine [Mass/Vol] 1.16 mg/dL High 0.55-1.02 [facility] Comment on above: Result Comment: Test ing performed on Shareable Social Dimension EXL analyzer using a modified kinetic Yahaira technique. Performed By: #### T SH, LIPID, VIDH, GFR, CMP #### [place] [address] Electrolyte Balance 4.0 mEq/L Normal 4.0-15.0 [facility] Comment on above: Performed By: #### T SH, LIPID, VIDH, GFR, CMP #### [place] [address] Globulin 2.6 G/dL Normal [facility] Comment on above: Performed By: #### T SH, LIPID, VIDH, GFR, CMP #### [place] [address] Glucose [Mass/Vol] 70 mg/dL Low 83-110 [facility] Comment on above: Performed By: #### T SH, LIPID, VIDH, GFR, CMP #### [place] [address] Potassium [Moles/Vol] 4.3 mmol/L Normal 3.5-5.1 [facility] Comment on above: Performed By: #### T SH, LIPID, VIDH, GFR, CMP #### [place] [id number] Sodium [Moles/Vol] 140 mmol/L Normal 136-145 [facility] Comment on above: Performed By: #### T SH, LIPID, VIDH, GFR, CMP #### [place] [address] Total Protein 6.7 G/dL Normal 6.4-8.2 [facility] Comment on above: Performed By: #### T SH, LIPID, VIDH, GFR, CMP #### [place] [address] Urea nitrogen [Mass/Vol] 19 mg/dL High 7-18 [facility] Comment on above: Performed By: #### T SH, LIPID, VIDH, GFR, CMP #### [place] [address] LABORATORYOrdered By: SYSTEM SYSTEM on 12-29-2023 25-hydroxyvitamin D3 [Mass/Vol] 37.4 ng/mL Invalid Interpretation Code AO ADM SS Comment on above: Interpretive Data: I nterpretive Values Based on Total 25(OH) Vitamin D: Deficient <20 ng/mL Insufficient 20 - <30 ng/mL Sufficient 30-100 ng/mL Albumin BCP dye [Mass/Vol] 4.1 G/dL Normal 3.4 - 4.8 G/dL AO ADM SS Albumin/Globulin [Mass ratio] 1.6 {ratio} Normal 1.1 - 2.5 ratio AO ADM SS ALP [Catalytic activity/Vol] 66 U/L Normal 40 - 135 U/L AO ADM SS ALT With P-5'-P [Catalytic activity/Vol] 24 U/L Normal 14 - 59 U/L AO ADM SS AST With P-5'-P [Catalytic activity/Vol] 20 U/L Normal 10 - 40 U/L AO ADM SS Bilirubin [Mass/Vol] 0.7 mg/dL Normal 0.2 - 1 .0 mg/dL AO ADM SS Comment on above: Interpretive Data: U se of this assay is not recommended for patients undergoing treatment with eltrombopag due to the potential for falsely elevated results. Calcium [Mass/Vol] 9.7 mg/dL Normal 8.4 - 10. 2 mg/dL AO ADM SS Chloride [Moles/Vol] 103 mmol/L Normal 98 - 10 7 mmol/L AO ADM SS CO2 [Moles/Vol] 33 mmol/L High 23 - 31 mmol/L AO ADM SS Creatinine [Mass/Vol] 1.16 mg/dL High 0.55 - 1.02 mg/dL AO ADM SS Comment on above: Interpretive Data: T esting performed on Shareable Social Dimension EXL analyzer using a modified kinetic Yahaira technique. Electrolyte Balance 4.0 mEq/L Normal 4.0 - 15 .0 mEq/L AO ADM SS GFR/1.73 sq M.predicted among blacks MDRD (S/P/Bld) [Vol rate/Area] 55 ml/min/1.73sqm Invalid Interpretation Code AO Chemistry S Comment on above: Interpretive Data: GFR Population mean for , Non- Americans Ages 20-29 = 116 mL/min/1.73 sq.m. Ages 30-39 = 107 mL/min/1.73 sq.m. Ages 40-49 = 99 mL/min/1.73 sq.m. Ages 50-59 = 93 mL/min/1.73 sq.m. Ages 60-69 = 85 mL/min/1.73 sq.m. Ages 70+ = 75 mL/min/1.73 sq.m. Chronic Kidney Disease: Less than 60 mL/min/1.73 square meters End Stage Renal Disease: Less than 15 mL/min/1.73 square meters GFR/1.73 sq M.predicted among non-blacks MDRD (S/P/Bld) [Vol rate/Area] 45 ml/min/1.73sqm Invalid Interpretation Code AO Chemistry S Comment on above: Interpretive Data: GFR Population mean for , Non- Americans Ages 20-29 = 116 mL/min/1.73 sq.m. Ages 30-39 = 107 mL/min/1.73 sq.m. Ages 40-49 = 99 mL/min/1.73 sq.m. Ages 50-59 = 93 mL/min/1.73 sq.m. Ages 60-69 = 85 mL/min/1.73 sq.m. Ages 70+ = 75 mL/min/1.73 sq.m. Chronic Kidney Disease: Less than 60 mL/min/1.73 square meters End Stage Renal Disease: Less than 15 mL/min/1.73 square meters Globulin 2.6 G/dL Invalid Interpretation Code AO ADM SS Glucose [Mass/Vol] 70 mg/dL Low 83 - 110 mg/dL AO ADM SS Potassium [Moles/Vol] 4.3 mmol/L Normal 3.5 - 5.1 mmol/L AO ADM SS Protein [Mass/Vol] 6.7 G/dL Normal 6.4 - 8.2 G/dL AO ADM SS Sodium [Moles/Vol] 140 mmol/L Normal 136 - 145 mmol/L AO ADM SS TSH Qn 1.38 m[IU]/L Normal 0.36 - 3.74 mcIU/mL AO ADM SS Urea nitrogen [Mass/Vol] 19 mg/dL High 7 - 18 mg/dL AO ADM SS Urea nitrogen/Creatinine [Mass ratio] 16 ratio Normal 7 - 27 ratio AO ADM SS LABORATORYOrdered By: Karol House on 12-29-2023 Cholesterol [Mass/Vol] 160 mg/dL Normal 0 - 200 mg/dL AO ADM SS Comment on above: Interpretive Data: C holesterol Reference Interval: Less than 200 Desirable 200-239 Borderline high risk 240 and above High risk Cholesterol in HDL [Mass/Vol] 53 mg/dL Normal 40 - 60 mg/dL AO ADM SS Cholesterol in LDL [Mass/Vol] 80 mg/dL Normal 0 - 130 mg/dL AO ADM SS Triglyceride [Mass/Vol] 133 mg/dL Normal 0 - 150 mg/dL AO ADM SS Comment on above: Interpretive Data: T riglyceride Reference Interval: Less than 150 Normal 150-199 Borderline high risk 200-499 High risk 500 or higher Very high risk LIPIDon 12-29-2023 Cholesterol [Mass/Vol] 160 mg/dL Normal 0-200 [facility] Comment on above: Result Comment: Chol esterol Reference Interval: Less than 200 Desirable 200-239 Borderline high risk 240 and above High risk Performed By: #### T SH, LIPID, VIDH, GFR, CMP #### [place] [address] [place], [place] [address] Cholesterol in HDL [Mass/Vol] 53 mg/dL Normal 40-60 [facility] Comment on above: Performed By: #### T SH, LIPID, VIDH, GFR, CMP #### [address] [address] Cholesterol in LDL [Mass/Vol] 80 mg/dL Normal 0-130 [facility] Comment on above: Performed By: #### T SH, LIPID, VIDH, GFR, CMP #### [address] [address] Triglyceride [Mass/Vol] 133 mg/dL Normal 0-150 [facility] Comment on above: Result Comment: Trig lyceride Reference Interval: Less than 150 Normal 150-199 Borderline high risk 200-499 High risk 500 or higher Very high risk Performed By: #### T SH, LIPID, VIDH, GFR, CMP #### [address] [address] TSHon 12-29-2023 TSH Qn 1.38 m[IU]/L Normal 0.36-3.74 [facility] Comment on above: Performed By: #### T SH, LIPID, VIDH, GFR, CMP #### [address] [address] VIDHon 12-29-2023 Vit. D 25-Hydroxy 37.4 ng/mL Normal [facility] Comment on above: Result Comment: Inte rpretive Values Based on Total 25(OH) Vitamin D: Deficient <20 ng/mL Insufficient 20 - <30 ng/mL Sufficient 30-100 ng/mL Performed By: #### T SH, LIPID, VIDH, GFR, CMP #### [address] [address] .GFRon 06-30-2023 GFR 57 ml/min/1.73sqm Normal [facility] Comment on above: Result Comment: GFR Population mean for , Non- Americans Ages 20-29 = 116 mL/min/1.73 sq.m. Ages 30-39 = 107 mL/min/1.73 sq.m. Ages 40-49 = 99 mL/min/1.73 sq.m. Ages 50-59 = 93 mL/min/1.73 sq.m. Ages 60-69 = 85 mL/min/1.73 sq.m. Ages 70+ = 75 mL/min/1.73 sq.m. Chronic Kidney Disease: Less than 60 mL/min/1.73 square meters End Stage Renal Disease: Less than 15 mL/min/1.73 square meters Performed By: #### B MP, GFR #### [address] [address] GFR Non- 47 ml/min/1.73sqm Normal [facility] ([place]) Comment on above: Result Comment: GFR Population mean for , Non- Americans Ages 20-29 = 116 mL/min/1.73 sq.m. Ages 30-39 = 107 mL/min/1.73 sq.m. Ages 40-49 = 99 mL/min/1.73 sq.m. Ages 50-59 = 93 mL/min/1.73 sq.m. Ages 60-69 = 85 mL/min/1.73 sq.m. Ages 70+ = 75 mL/min/1.73 sq.m. Chronic Kidney Disease: Less than 60 mL/min/1.73 square meters End Stage Renal Disease: Less than 15 mL/min/1.73 square meters Performed By: #### B MP, GFR #### [address] [address] BMPon 06-30-2023 BUN/Creatinine Ratio 18 ratio Normal 7-27 [facility] ([place]) Comment on above: Performed By: #### B MP, GFR #### [address] [address] Calcium [Mass/Vol] 9.7 mg/dL Normal 8.4-10.2 [facility] ([place]) Comment on above: Performed By: #### B MP, GFR #### [address] [address] Chloride [Moles/Vol] 100 mmol/L Normal 98-107 [facility] ([place]) Comment on above: Performed By: #### B MP, GFR #### [place] [address] [address] CO2 [Moles/Vol] 30 mmol/L Normal 23-31 [facility] ([place]) Comment on above: Performed By: #### B MP, GFR #### [address] [address] Creatinine [Mass/Vol] 1.13 mg/dL High 0.55-1.02 [facility] ([place]) Comment on above: Performed By: #### B MP, GFR #### [address] [address] Electrolyte Balance 8.0 mEq/L Normal 4.0-15.0 [facility] ([place]) Comment on above: Performed By: #### B MP, GFR #### [address] [address] Glucose [Mass/Vol] 113 mg/dL High 83-110 [facility] ([place]) Comment on above: Performed By: #### B MP, GFR #### [address] [address] Potassium [Moles/Vol] 3.6 mmol/L Normal 3.5-5.1 [facility] ([place]) Comment on above: Performed By: #### B MP, GFR #### [address] [address] Sodium [Moles/Vol] 138 mmol/L Normal 136-145 [facility] ([place]) Comment on above: Performed By: #### B MP, GFR #### [address] [address] Urea nitrogen [Mass/Vol] 20 mg/dL High 7-18 [facility] ([place]) Comment on above: Performed By: #### B MP, GFR #### [address] [address] MA MAMMOGRAM SCREENING BILAT ERAL W/TOMOon 03-04-2023 MA MAMMOGRAM SCREENING BILATERAL W/FERNANDO ORIGINAL FROM: [address] [address] PROCEDURE FOR: SAMANTHA HILL [address] [place] [address] Home: PID#: [id number] Exam#: [id number] : 1945 Age: 77 TO: MACI MACARIO DO [address] [address] Fax: NO FAX EXAMINATION: SCREENING DIGITAL BILATERAL MAMMOGRAM WITH TOMOSYNTHESIS, 03/02/2023 TECHNIQUE: Screening mammography of the bilateral breasts was performed with tomosynthesis. 2D standard and 3D tomosynthesis combination imaging performed through both breasts in the MLO and CC projection. Computer aided detection was utilized in the interpretation of this exam. COMPARISON: 02/27/2022 HISTORY: Screening. FINDINGS: BREAST DENSITY: Heterogeneously dense There are no significant masses or calcifications. IMPRESSION: No mammographic evidence of malignancy. Continued screening with annual mammograms is recommended. BIRADS: MAMMOGRAM BI-RADS: 1: Negative RECALL: 1 year screening RECALL TYPE: mammo LETTER SENT: Normal BI-RADS 1 and 2 Interpreted by: Rj Caceres MD Preliminary Report By: Rj Caceres MD Electronically signed By Rj Caceres MD Dictated Date: 03/04/2023 11:19:31 AM Prelim Date: 03/04/2023 11:23:48 AM Sign Date: 03/04/2023 11:23:48 AM Ordering Provider: MACI MACARIO Collision Technician: YVETTE RODRIGUEZ RT(R)(M)(CT) MAGAZINE EDITOR letter sent: Normal BI-RADS 1 and 2 Mammogram BI-RADS: 1 Negative Normal [facility] ([place]) BD BONE DENSITY DEXA AXIAL S NIA 03-02-2023 BD BONE DENSITY DEXA AXIAL SKELETON ORIGINAL EXAMINATION: BONE DENSITOMETRY 03/02/2023 11:13 am TECHNIQUE: A bone density dual x-ray absorptiometry (DEXA) scan was performed of the axial (e.g. hips, spine) and/or appendicular (e.g. radius) skeleton as appropriate on a Hologic system. COMPARISON: 02/22/2021. HISTORY: ORDERING SYSTEM PROVIDED HISTORY: Reason for Exam: Osteoporosis Screening FINDINGS: BMD (g/cm2) Lumbar Spine L1-L4: 0.894. T Score Lumbar Spine L1-L4: -1.4 BMD (g/cm2) 1/3 Left Forearm: 0.609. T Score 1/3 Left Forearm: -1.3 BMD (g/cm2) Total left Forearm: 0.484. T Score Total Left Forearm: -1.6 BMD Change from previous Lumbar spine: -0.5% 10 year probability of fracture: FRAX not reported as the patient reports actively being treated for osteoporosis. IMPRESSION: Osteopenia by WHO criteria. *By the World Health Organization criteria: (Comparing with young normal sex matched population) - Normal: T-score at or above -1 SD (standard deviation) - Osteopenia: T-score between -1 and -2.5 SD - Osteoporosis: T-score at or below -2.5 SD I have personally reviewed the images of this examination and agree with the resident's findings and interpretation. Interpreted by: Michelle Bernard Preliminary Report By: Linda Kim Electronically signed By Michelle Bernard Dictated Date: 03/02/2023 11:15:16 AM Prelim Date: 03/02/2023 12:29:59 PM Sign Date: 03/02/2023 12:29:59 PM Ordering Provider: MACI MACARIO [facility] ([place]) .GFRon 12-25-2022 GFR 46 ml/min/1.73sqm Normal [facility] ([place]) Comment on above: Result Comment: GFR Population mean for , Non- Americans Ages 20-29 = 116 mL/min/1.73 sq.m. Ages 30-39 = 107 mL/min/1.73 sq.m. Ages 40-49 = 99 mL/min/1.73 sq.m. Ages 50-59 = 93 mL/min/1.73 sq.m. Ages 60-69 = 85 mL/min/1.73 sq.m. Ages 70+ = 75 mL/min/1.73 sq.m. Chronic Kidney Disease: Less than 60 mL/min/1.73 square meters End Stage Renal Disease: Less than 15 mL/min/1.73 square meters Performed By: #### C MP, LIPID, TSH, GFR #### [facility] [address] [place], [place] [address] GFR Non- 38 ml/min/1.73sqm Normal [facility] ([place]) Comment on above: Result Comment: GFR Population mean for , Non- Americans Ages 20-29 = 116 mL/min/1.73 sq.m. Ages 30-39 = 107 mL/min/1.73 sq.m. Ages 40-49 = 99 mL/min/1.73 sq.m. Ages 50-59 = 93 mL/min/1.73 sq.m. Ages 60-69 = 85 mL/min/1.73 sq.m. Ages 70+ = 75 mL/min/1.73 sq.m. Chronic Kidney Disease: Less than 60 mL/min/1.73 square meters End Stage Renal Disease: Less than 15 mL/min/1.73 square meters Performed By: #### C MP, LIPID, TSH, GFR #### [address] [address] CMPon 12-25-2022 Albumin Level 4.2 G/dL Normal 3.4-4.8 [facility] ([place]) Comment on above: Performed By: #### C MP, LIPID, TSH, GFR #### [address] [address] Albumin/Globulin [Mass ratio] 1.6 {ratio} Normal 1.1-2.5 [facility] ([place]) Comment on above: Performed By: #### C MP, LIPID, TSH, GFR #### [address] [address] ALP [Catalytic activity/Vol] 52 U/L Normal 40-135 [facility] ([place]) Comment on above: Performed By: #### C MP, LIPID, TSH, GFR #### [address] [address] ALT [Catalytic activity/Vol] 24 U/L Normal 14-59 [facility] ([place]) Comment on above: Performed By: #### C MP, LIPID, TSH, GFR #### [address] [address] AST [Catalytic activity/Vol] 24 U/L Normal 10-40 [facility] ([place]) Comment on above: Performed By: #### C MP, LIPID, TSH, GFR #### [address] [address] Bili Total 0.8 mg/dL Normal 0.2-1.0 [facility] ([place]) Comment on above: Result Comment: Use of this assay is not recommended for patients undergoing treatment with eltrombopag due to the potential for falsely elevated results. Performed By: #### C MP, LIPID, TSH, GFR #### [place] [address] BUN/Creatinine Ratio 21 ratio Normal 7-27 [facility] ([place]) Comment on above: Performed By: #### C MP, LIPID, TSH, GFR #### [place] [address] Calcium [Mass/Vol] 9.3 mg/dL Normal 8.4-10.2 [facility] ([place]) Comment on above: Performed By: #### C MP, LIPID, TSH, GFR #### [place] [address] Chloride [Moles/Vol] 103 mmol/L Normal 98-107 [facility] ([place]) Comment on above: Performed By: #### C MP, LIPID, TSH, GFR #### [place] [address] CO2 [Moles/Vol] 32 mmol/L High 23-31 [facility] ([place]) Comment on above: Performed By: #### C MP, LIPID, TSH, GFR #### [place] [id number] Creatinine [Mass/Vol] 1.35 mg/dL High 0.55-1.02 [facility] ([place]) Comment on above: Performed By: #### C MP, LIPID, TSH, GFR #### [place] [id number] Electrolyte Balance 7.0 mEq/L Normal 4.0-15.0 [facility] ([place]) Comment on above: Performed By: #### C MP, LIPID, TSH, GFR #### [address] [address] Globulin 2.6 G/dL Normal [facility] ([place]) Comment on above: Performed By: #### C MP, LIPID, TSH, GFR #### [address] [address] Glucose [Mass/Vol] 79 mg/dL Low 83-110 [facility] ([place]) Comment on above: Performed By: #### C MP, LIPID, TSH, GFR #### [address] [address] Potassium [Moles/Vol] 4.0 mmol/L Normal 3.5-5.1 [facility] ([place]) Comment on above: Performed By: #### C MP, LIPID, TSH, GFR #### [address] [address] Sodium [Moles/Vol] 142 mmol/L Normal 136-145 [facility] ([place]) Comment on above: Performed By: #### C MP, LIPID, TSH, GFR #### [address] [address] Total Protein 6.8 G/dL Normal 6.4-8.2 [facility] ([place]) Comment on above: Performed By: #### C MP, LIPID, TSH, GFR #### [address] [address] Urea nitrogen [Mass/Vol] 28 mg/dL High 7-18 [facility] ([place]) Comment on above: Performed By: #### C MP, LIPID, TSH, GFR #### [address] [address] LIPIDon 12-25-2022 Cholesterol [Mass/Vol] 162 mg/dL Normal 0-200 [facility] ([place]) Comment on above: Result Comment: Chol esterol Reference Interval: Less than 200 Desirable 200-239 Borderline high risk 240 and above High risk Performed By: #### C MP, LIPID, TSH, GFR #### [address] [address] Cholesterol in HDL [Mass/Vol] 54 mg/dL Normal 40-60 [facility] ([place]) Comment on above: Performed By: #### C MP, LIPID, TSH, GFR #### [address] [address] Cholesterol in LDL [Mass/Vol] 86 mg/dL Normal 0-130 [facility] ([place]) Comment on above: Performed By: #### C MP, LIPID, TSH, GFR #### [address] [address] Triglyceride [Mass/Vol] 109 mg/dL Normal 0-150 [facility] ([place]) Comment on above: Result Comment: Trig lyceride Reference Interval: Less than 150 Normal 150-199 Borderline high risk 200-499 High risk 500 or higher Very high risk Performed By: #### C MP, LIPID, TSH, GFR #### [address] [address] TSHon 12-25-2022 TSH Qn 1.32 m[IU]/L Normal 0.36-3.74 [facility] ([place]) Comment on above: Performed By: #### C MP, LIPID, TSH, GFR #### [address] [address] LABORATORYOrdered By: Karishma Morrison on 04-30-2022 Basophil, Absolute 0.0 103/mcL Invalid Interpretation Code 0.0 - 0.2 10^3/mcL AO Workflow SS Basophils/100 WBC (Bld) 0.1 % Invalid Interpretation Code 0.0 - 2.5 % AO Workflow SS Eosinophil, Absolute 0.0 103/mcL Invalid Interpretation Code 0.0 - 0.4 10^3/mcL AO Workflow SS Eosinophils/100 WBC (Bld) 0.0 % Invalid Interpretation Code 0.0 - 7.0 % AO Workflow SS Erythrocyte distribution width (RBC) [Ratio] 13.6 % Invalid Interpretation Code 11.5 - 14.5 % AO Workflow SS Hematocrit (Bld) [Volume fraction] 33.2 % Invalid Interpretation Code 37.0 - 47.0 % AO Workflow SS Hemoglobin (Bld) [Mass/Vol] 11.5 G/dL Invalid Interpretation Code 12.0 - 16.0 G/dL AO Workflow SS Lymphocyte, Absolute 0.3 103/mcL Invalid Interpretation Code 0.8 - 3.9 10^3/mcL AO Workflow SS Lymphocytes/100 WBC (Bld) 2.3 % Invalid Interpretation Code 10.0 - 50.0 % AO Workflow SS MCH (RBC) [Entitic mass] 30.0 pg Invalid Interpretation Code 27.0 - 31.2 pg AO Workflow SS MCHC 34.7 G/dL Invalid Interpretation Code 33.0 - 37.0 G/dL AO Workflow SS MCV (RBC) [Entitic vol] 86.5 fL Invalid Interpretation Code 80.0 - 94.0 fL AO Workflow SS Monocyte, Absolute 0.9 103/mcL Invalid Interpretation Code 0.2 - 1.0 10^3/mcL AO Workflow SS Monocytes/100 WBC (Bld) 7.2 % Invalid Interpretation Code 1.7 - 13.0 % AO Workflow SS Neutrophil, Absolute 11.1 103/mcL Invalid Interpretation Code 2.9 - 6.2 10^3/mcL AO Workflow SS Neutrophils/100 WBC (Bld) 90.4 % Invalid Interpretation Code 37.0 - 80.0 % AO Workflow SS Platelet mean volume (Bld) [Entitic vol] 8.1 fL Invalid Interpretation Code 7.4 - 10.4 fL AO Workflow SS Platelets (Bld) [#/Vol] 198 103/mcL Invalid Interpretation Code 130 - 400 10^3/mcL AO Workflow SS RBC (Bld) [#/Vol] 3.84 106/mcL Invalid Interpretation Code 4.20 - 5.40 10^6/mcL AO Workflow SS WBC (Bld) [#/Vol] 12.2 103/mcL Invalid Interpretation Code 4.6 - 10.8 10^3/mcL AO Workflow SS LABORATORYOrdered By: SYSTEM SYSTEM on 04-30-2022 Calcium [Mass/Vol] 8.6 mg/dL Invalid Interpretation Code 8.4 - 10.2 mg/dL AO ADM SS Chloride [Moles/Vol] 102 mmol/L Invalid Interpretation Code 98 - 107 mmol/L AO ADM SS CO2 [Moles/Vol] 30 mmol/L Invalid Interpretation Code 23 - 31 mmol/L AO ADM SS Creatinine [Mass/Vol] 0.98 mg/dL Invalid Interpretation Code 0.55 - 1.02 mg/dL AO ADM SS Electrolyte Balance 5.0 mEq/L Invalid Interpretation Code 4.0 - 15.0 mEq/L AO ADM SS GFR 67 ml/min/1.73sqm Invalid Interpretation Code AO Chemistry S GFR Non- 55 ml/min/1.73sqm Invalid Interpretation Code AO Chemistry S Glucose [Mass/Vol] 98 mg/dL Invalid Interpretation Code 83 - 110 mg/dL AO ADM SS Potassium [Moles/Vol] 4.3 mmol/L Invalid Interpretation Code 3.5 - 5.1 mmol/L AO ADM SS Sodium [Moles/Vol] 137 mmol/L Invalid Interpretation Code 136 - 145 mmol/L AO ADM SS Urea nitrogen [Mass/Vol] 28 mg/dL Invalid Interpretation Code 7 - 18 mg/dL AO ADM SS Urea nitrogen/Creatinine [Mass ratio] 29 ratio Invalid Interpretation Code 7 - 27 ratio AO ADM SS LABORATORYOrdered By: Leah Galan on 04-29-2022 ABO/Rh Interp Positive Invalid Interpretation Code AO BB SS Antibody Screen Gel Negative ABSC (04/29/22 9:19 AM) Invalid Interpretation Code AO BB SS LABORATORYOrdered By: SYSTEM SYSTEM on 04-08-2022 Albumin BCP dye [Mass/Vol] 4.3 G/dL Invalid Interpretation Code 3.4 - 4.8 G/dL AO ADM SS Albumin/Globulin [Mass ratio] 1.5 {ratio} Invalid Interpretation Code 1.1 - 2.5 ratio AO ADM SS ALP [Catalytic activity/Vol] 71 U/L Invalid Interpretation Code 40 - 135 U/L AO ADM SS ALT With P-5'-P [Catalytic activity/Vol] 23 U/L Invalid Interpretation Code 14 - 59 U/L AO ADM SS AST With P-5'-P [Catalytic activity/Vol] 24 U/L Invalid Interpretation Code 10 - 40 U/L AO ADM SS Bilirubin [Mass/Vol] 0.4 mg/dL Invalid Interpretation Code 0.2 - 1.0 mg/dL AO ADM SS Calcium [Mass/Vol] 10.4 mg/dL Invalid Interpretation Code 8.4 - 10.2 mg/dL AO ADM SS Chloride [Moles/Vol] 102 mmol/L Invalid Interpretation Code 98 - 107 mmol/L AO ADM SS CO2 [Moles/Vol] 29 mmol/L Invalid Interpretation Code 23 - 31 mmol/L AO ADM SS Creatinine [Mass/Vol] 1.30 mg/dL Invalid Interpretation Code 0.55 - 1.02 mg/dL AO ADM SS Electrolyte Balance 10.0 mEq/L Invalid Interpretation Code 4.0 - 15.0 mEq/L AO ADM SS GFR 48 ml/min/1.73sqm Invalid Interpretation Code AO Chemistry S GFR Non- 40 ml/min/1.73sqm Invalid Interpretation Code AO Chemistry S Globulin 2.9 G/dL Invalid Interpretation Code AO ADM SS Glucose [Mass/Vol] 87 mg/dL Invalid Interpretation Code 83 - 110 mg/dL AO ADM SS Potassium [Moles/Vol] 4.6 mmol/L Invalid Interpretation Code 3.5 - 5.1 mmol/L AO ADM SS Protein [Mass/Vol] 7.2 G/dL Invalid Interpretation Code 6.4 - 8.2 G/dL AO ADM SS Sodium [Moles/Vol] 141 mmol/L Invalid Interpretation Code 136 - 145 mmol/L AO ADM SS Urea nitrogen [Mass/Vol] 30 mg/dL Invalid Interpretation Code 7 - 18 mg/dL AO ADM SS Urea nitrogen/Creatinine [Mass ratio] 23 ratio Invalid Interpretation Code 7 - 27 ratio AO ADM SS LABORATORYOrdered By: Karol House on 04-08-2022 Basophil, Absolute 0.0 103/mcL Invalid Interpretation Code 0.0 - 0.2 10^3/mcL AO Workflow SS Basophils/100 WBC (Bld) 0.4 % Invalid Interpretation Code 0.0 - 2.5 % AO Workflow SS Eosinophil, Absolute 0.2 103/mcL Invalid Interpretation Code 0.0 - 0.4 10^3/mcL AO Workflow SS Eosinophils/100 WBC (Bld) 3.4 % Invalid Interpretation Code 0.0 - 7.0 % AO Workflow SS Erythrocyte distribution width (RBC) [Ratio] 14.3 % Invalid Interpretation Code 11.5 - 14.5 % AO Workflow SS Hematocrit (Bld) [Volume fraction] 40.2 % Invalid Interpretation Code 37.0 - 47.0 % AO Workflow SS Hemoglobin (Bld) [Mass/Vol] 13.9 G/dL Invalid Interpretation Code 12.0 - 16.0 G/dL AO Workflow SS Lymphocyte, Absolute 0.6 103/mcL Invalid Interpretation Code 0.8 - 3.9 10^3/mcL AO Workflow SS Lymphocytes/100 WBC (Bld) 11.0 % Invalid Interpretation Code 10.0 - 50.0 % AO Workflow SS MCH (RBC) [Entitic mass] 30.2 pg Invalid Interpretation Code 27.0 - 31.2 pg AO Workflow SS MCHC 34.4 G/dL Invalid Interpretation Code 33.0 - 37.0 G/dL AO Workflow SS MCV (RBC) [Entitic vol] 87.6 fL Invalid Interpretation Code 80.0 - 94.0 fL AO Workflow SS Monocyte, Absolute 0.6 103/mcL Invalid Interpretation Code 0.2 - 1.0 10^3/mcL AO Workflow SS Monocytes/100 WBC (Bld) 10.7 % Invalid Interpretation Code 1.7 - 13.0 % AO Workflow SS Neutrophil, Absolute 4.1 103/mcL Invalid Interpretation Code 2.9 - 6.2 10^3/mcL AO Workflow SS Neutrophils/100 WBC (Bld) 74.5 % Invalid Interpretation Code 37.0 - 80.0 % AO Workflow SS Platelet mean volume (Bld) [Entitic vol] 8.1 fL Invalid Interpretation Code 7.4 - 10.4 fL AO Workflow SS Platelets (Bld) [#/Vol] 222 103/mcL Invalid Interpretation Code 130 - 400 10^3/mcL AO Workflow SS RBC (Bld) [#/Vol] 4.59 106/mcL Invalid Interpretation Code 4.20 - 5.40 10^6/mcL AO Workflow SS WBC (Bld) [#/Vol] 5.5 103/mcL Invalid Interpretation Code 4.6 - 10.8 10^3/mcL AO Workflow SS LABORATORYOrdered By: Karol House on 01-18-2022 Albumin BCP dye [Mass/Vol] 4.3 G/dL Invalid Interpretation Code 3.4 - 4.8 G/dL AO ADM SS Albumin/Globulin [Mass ratio] 1.7 {ratio} Invalid Interpretation Code 1.1 - 2.5 ratio AO ADM SS ALP [Catalytic activity/Vol] 69 U/L Invalid Interpretation Code 40 - 135 U/L AO ADM SS ALT With P-5'-P [Catalytic activity/Vol] 23 U/L Invalid Interpretation Code 14 - 59 U/L AO ADM SS AST With P-5'-P [Catalytic activity/Vol] 22 U/L Invalid Interpretation Code 10 - 40 U/L AO ADM SS Bilirubin [Mass/Vol] 0.7 mg/dL Invalid Interpretation Code 0.2 - 1.0 mg/dL AO ADM SS Calcium [Mass/Vol] 9.5 mg/dL Invalid Interpretation Code 8.4 - 10.2 mg/dL AO ADM SS Chloride [Moles/Vol] 106 mmol/L Invalid Interpretation Code 98 - 107 mmol/L AO ADM SS Cholesterol [Mass/Vol] 150 mg/dL Invalid Interpretation Code 0 - 200 mg/dL AO ADM SS Cholesterol in HDL [Mass/Vol] 50 mg/dL Invalid Interpretation Code 40 - 60 mg/dL AO ADM SS Cholesterol in LDL [Mass/Vol] 74 mg/dL Invalid Interpretation Code 0 - 130 mg/dL AO ADM SS CO2 [Moles/Vol] 30 mmol/L Invalid Interpretation Code 23 - 31 mmol/L AO ADM SS Creatinine [Mass/Vol] 1.26 mg/dL Invalid Interpretation Code 0.55 - 1.02 mg/dL AO ADM SS Electrolyte Balance 7.0 mEq/L Invalid Interpretation Code 4.0 - 15.0 mEq/L AO ADM SS Globulin 2.6 G/dL Invalid Interpretation Code AO ADM SS Glucose [Mass/Vol] 85 mg/dL Invalid Interpretation Code 83 - 110 mg/dL AO ADM SS Potassium [Moles/Vol] 3.9 mmol/L Invalid Interpretation Code 3.5 - 5.1 mmol/L AO ADM SS Protein [Mass/Vol] 6.9 G/dL Invalid Interpretation Code 6.4 - 8.2 G/dL AO ADM SS Sodium [Moles/Vol] 143 mmol/L Invalid Interpretation Code 136 - 145 mmol/L AO ADM SS Triglyceride [Mass/Vol] 132 mg/dL Invalid Interpretation Code 0 - 150 mg/dL AO ADM SS TSH Qn 1.48 m[IU]/L Invalid Interpretation Code 0.36 - 3.74 mcIU/mL AO ADM SS Urea nitrogen [Mass/Vol] 23 mg/dL Invalid Interpretation Code 7 - 18 mg/dL AO ADM SS Urea nitrogen/Creatinine [Mass ratio] 18 ratio Invalid Interpretation Code 7 - 27 ratio AO ADM SS LABORATORYOrdered By: SYSTEM SYSTEM on 01-18-2022 GFR 50 ml/min/1.73sqm Invalid Interpretation Code AO Chemistry S GFR Non- 41 ml/min/1.73sqm Invalid Interpretation Code AO Chemistry S LABORATORYOrdered By: Cammie Whitfield on 01-18-2022 HCV Ab IA Ql Non-Reactive (01/18/22 7:34 AM) Invalid Interpretation Code Non-Reactive AH ADM SS HCV Ab IA Ql Nonreactive: Samples with a value < 0.80 are considered nonreactive (negative) for antibodies to HCV.A negative test result does not exclude the possibility of exposure to or infection with HCV. HCV antibodies may be undetectable in some stages of the infection and in some clinical conditions. Invalid Interpretation Code AH Chemistry S Vital Signs Date Time Vital Sign Value Performing Clinician Faci lity 04-30-2022 14:40-0500 Body temperature 98.24 [degF] DR CHARI RUEDA MD [facility] 04-30-2022 14:40-0500 Diastolic Blood Pressure Non-Invasive [address] CHARI RUEDA MD [facility] 04-30-2022 14:40-0500 Heart rate 64 /min DR CHARI RUEDA MD [facility] 04-30-2022 14:40-0500 Reason For Taking VItal Signs DR CHARI RUEDA MD [facility] 04-30-2022 14:40-0500 Respiratory rate 18 /min DR CHARI RUEDA MD [facility] 04-30-2022 14:40-0500 Systolic Blood Pressure Non-Invasive [address] CHARI RUEDA MD [facility] 04-30-2022 14:22-0500 Respiratory rate 18 /min DR CHARI RUEDA MD [facility] 04-30-2022 11:32-0500 Respiratory rate 18 /min DR CHARI RUEDA MD [facility] 04-30-2022 09:02-0500 Body temperature 97.88 [degF] DR CHARI RUEDA MD [facility] 04-30-2022 09:02-0500 Diastolic Blood Pressure Non-Invasive [address] CHARI RUEDA MD [facility] 04-30-2022 09:02-0500 Heart rate 57 /min DR CHARI RUEDA MD [facility] 04-30-2022 09:02-0500 Reason For Taking VItal Signs DR CHARI RUEDA MD [facility] 04-30-2022 09:02-0500 Systolic Blood Pressure Non-Invasive [address] CHARI RUEDA MD [facility] 04-30-2022 04:44-0500 Body temperature 98.06 [degF] DR CHARI RUEDA MD [facility] 04-30-2022 04:44-0500 Diastolic Blood Pressure Non-Invasive [address] CHARI RUEDA MD [facility] 04-30-2022 04:44-0500 Heart rate 64 /min DR CHARI RUEDA MD [facility] 04-30-2022 04:44-0500 Reason For Taking VItal Signs DR CHARI RUEDA MD [facility] 04-30-2022 04:44-0500 Systolic Blood Pressure Non-Invasive [address] CHARI RUEDA MD [facility] 04-29-2022 13:26-0500 Body temperature 96.98 [degF] DR CHARI RUEDA MD [facility] 04-29-2022 13:19-0500 Body height 167.[address] CHARI RUEDA MD [facility] 04-29-2022 13:19-0500 Body weight [address] CHARI RUEDA MD [facility] 04-29-2022 13:19-0500 Body weight 22.78 kg/m2 DR CHARI RUEDA MD [facility] 04-29-2022 12:00-0500 Body temperature 96.8 [degF] DR CHARI RUEDA MD [facility] 04-29-2022 11:55-0500 Respiratory Rate - Anes 16 br/min DR CHARI RUEDA MD [facility] 04-29-2022 11:50-0500 Respiratory Rate - Anes 15 br/min DR CHARI RUEDA MD [facility] 04-29-2022 11:45-0500 Respiratory Rate - Anes 9 br/min DR CHARI RUEDA MD [facility] 04-29-2022 09:42-0500 Body height 167.[address] CHARI RUEDA MD [facility] 04-29-2022 09:42-0500 Body temperature 97.7 [degF] DR CHARI RUEDA MD [facility] 04-29-2022 09:42-0500 Body weight [address] CHARI RUEDA MD [facility] 04-29-2022 09:42-0500 Heart rate 82 /min DR CHARI RUEDA MD [facility] 04-15-2022 13:49-0500 [address] Pressure Cuff Size [facility] [place] 04-15-2022 13:49-[address] CHARI RUEDA MD [facility] 04-15-2022 13:49-[address] CHARI Pearson [facility] 04-15-2022 13:49-0500 Body height 167.[address] CHARI RUEDA MD [facility] 04-15-2022 13:49-0500 Body weight [address] CHARI RUEDA MD [facility] 04-15-2022 13:49-0500 Body weight 22.78 kg/m2 DR CHARI RUEDA MD [facility] 04-15-2022 13:49-0500 Diastolic Blood Pressure Non-Invasive [address] CHARI RUEDA MD [facility] 04-15-2022 13:49-0500 Heart rate 79 /min DR CHARI RUEDA MD [facility] 04-15-2022 13:49-0500 Systolic Blood Pressure Non-Invasive [address] CHARI RUEDA MD [facility] Encounters Encounter Date Encounter Type Care Provider Facility Start: 09-22-2024 ambulatory Maci Macario Facility :[facility] Start: 07-14-2024 End: 07-14-2024 ambulatory Merry Vang Facility:[facility] Start: 07-07-2024 Encounter for genera l adult medical examination without abnormal findings Heath Baum [facility] Start: 06-28-2024 End: 06-28-2024 Emergency department patient visit MACI MACARIO DO Facility:[facility] Start: 06-23-2024 End: 06-23-[address] Maci Macario DO Work Phone: [facility] Work Phone: Start: 06-23-2024 End: 06-23-[address] Heath Baum MD -Laboratory Work Phone: Start: 06-23-2024 End: 06-23-2024 ambulatory Maci Macario Facility:[facility] Start: 03-03-2024 End: 03-03-2024 ambulatory MACI COOKY DO Facility[facility] Start: 03-03-2024 End: 03-03-2024 Patient encounter procedure MACI COOKY DO [facility] Start: 01-29-2024 End: 01-29-2024 ambulatory Maci Macario Facility:[facility] Start: 12-29-2023 End: 12-29-2023 ambulatory MACI AMIRAH DO Facility:[facility] Start: 12-29-2023 End: 12-29-2023 Patient encounter procedure MACI COOKY DO [facility] Start: 09-29-2023 End: 09-29-2023 ambulatory Maci Macario Facility:[facility] Start: 06-30-2023 End: 07-01-2023 ambulatory MACI COOKY DO Facility:[facility] Start: 03-02-2023 End: 03-03-2023 ambulatory MACI COOKY DO Facility:[facility] Start: 03-02-2023 End: 03-02-2023 Patient encounter procedure MACI MACARIO DO [facility] Start: 01-05-2023 End: 01-06-2023 ambulatory MACI COOKY DO Facility:[facility] Start: 01-05-2023 End: 01-05-2023 Patient encounter procedure MACI MACARIO DO [facility] Start: 12-25-2022 End: 12-26-2022 ambulatory MACI COOKY DO Facility:[facility] Start: 12-24-2022 End: 12-24-2022 ambulatory [facility] Work Phone: Start: 12-24-2022 End: 12-24-2022 Patient encounter procedure [facility] Work Phone: Start: 08-12-2022 End: 08-12-2022 ambulatory [facility] Work Phone: Start: 08-12-2022 End: 08-12-2022 Patient encounter procedure [facility] Start: 05-02-2022 End: 06-10-2022 Admission to same day surgery center RICHARD Beatrice EMANUEL MOORE [facility] Start: 04-29-2022 End: 04-30-[address] CHARI RUEDA MD [facility] Start: 04-15-2022 End: 04-15-[address] CHARI RUEDA MD [facility] Start: 04-08-2022 End: 04-08-2022 Patient encounter procedure MACI MACARIO DO [facility] Start: 04-08-2022 End: 04-08-2022 Preprocedural examination done MACI MACARIO DO [facility] Start: 01-18-2022 End: 01-18-2022 Patient encounter procedure MACI MACARIO DO [facility] Start: 11-01-2021 End: 11-01-2021 Patient encounter procedure [facility] Start: 02-22-2021 End: 02-22-2021 Patient encounter procedure MACI MACARIO DO [facility] Procedures Date Procedure Procedure Detail Performing Clinician Start: 06-10-2022 Repair of hip RICHARD JOLEEN THAYER-C Comment on above: RIGHT, ANTERIOR Start: 04-29-[address] CHARI RUEDA MD Comment on above: LEFT Start: 06-10-2017 Colonoscopy MACI MARTINEZ DO Appendectomy MACI MACARIO DO Decompression of med hilda nerve MACI MACARIO DO Comment on above: RIGHT Dilation and curettage LEVON IN AMIRAH DO Extraction of cataract [facility] IN AMIRAH DO Comment on above: BILATERAL Fallopian tube excision ASYA MACARIO DO Comment on above: bilateral (observable entity) MACI MACARIO DO Comment on above: 1 History of repair of musculotendinous cuff of shoulder DR CHARI RUEDA MD Comment on above: left Ligation of fallopian tube K AALIYAH MACARIO DO Repair of musculoten dinous cuff of shoulder MACI MACARIO DO Comment on above: RIGHT Plan of Treatment Date Care Activity Detail Author Start: 12-24-2022 Procedure [facility] Start: 08-12-2022 Procedure [facility] Start: 11-01-2021 Procedure [facility] Work Phone: Procedure [facility] Work Phone: Immunizations Immunization Date Immunization Notes Care Provider Fa [facility] 01-20-2024 influenza virus vacc ine, unspecified formulation MACI MACARIO DO [facility] 01-20-2024 SARS-CoV-2 (COVID-19 ) [id number] MACI AMIRAH DO [facility] 01-12-2023 SARS-CoV-2 (COVID-19 ) [id number] MACI MACARIO DO [facility] 12-26-2022 influenza virus vacc ine, unspecified formulation MACI MACARIO DO [facility] 01-29-2022 influenza virus vacc ine, unspecified formulation MACI MACARIO DO [facility] 01-03-2022 SARS-CoV-2 (CV19)mRNA-1273 bivalent vac MACI MACARIO DO [facility] 01-03-2022 SARS-CoV-2 CV19 mRNA-1273 bival carrie vax MACI MACARIO DO [facility] 01-03-2022 SARSCoV2 (CV19)mRNA-1273(6y+ bival carrie MACI MACARIO DO [facility] 01-03-2022 tetanus toxoid, redu libna diphtheria toxoid, and acellular pertussis vaccine, adsorbed MACI MACARIO DO [facility] 07-19-2021 SARS-CoV-2 (COVID-19 ) mRNA-1273 vaccine MACI MACARIO DO [facility] 03-09-2021 SARS-CoV-2 (COVID-19 ) mRNA-1273 vaccine MACI MACARIO DO [facility] 01-23-2021 influenza virus vacc ine, unspecified formulation MACI MACARIO DO [facility] 12-11-2020 pneumococcal polysaccharide vaccine, 23 valent; Translations: [Pneumovax 23] MACI MACARIO DO [facility] 07-23-2020 COVID-19, mRNA, LNP- S, PF, 100 mcg/ 0.5 mL dose; Translations: [Moderna COVID-19 Vaccine] MACI MACARIO DO [facility] 06-25-2020 COVID-19, mRNA, LNP- S, PF, 100 mcg/ 0.5 mL dose; Translations: [Moderna COVID-19 Vaccine] MACI MACARIO DO [facility] 01-24-2020 influenza virus vacc ine, unspecified formulation MACI COOKY DO [facility] 11-23-2019 zoster vaccine recombinant MACI MACARIO DO [facility] 09-19-2019 zoster vaccine recombinant MACI MACARIO DO [facility] 02-03-2019 influenza virus vacc ine, unspecified formulation MACI COOKY DO [facility] 01-07-2018 influenza virus vacc ine, unspecified formulation MACI MACARIO DO [facility] 12-25-2017 influenza virus vacc ine, unspecified formulation MACI COOKY DO [facility] 02-05-2017 influenza virus vacc ine, unspecified formulation MACI AMIRAH DO [facility] 03-07-2016 pneumococcal conjuga te vaccine, 13 valent MACI MACARIO DO [facility] 01-14-2016 influenza virus vacc ine, unspecified formulation MACI MACARIO DO [facility] 04-20-2011 pneumococcal polysaccharide vaccine, 23 valent MACI MACARIO DO [facility] 04-20-2011 zoster vaccine, live MACI MACARIO DO [facility] 03-19-2011 pneumococcal polysaccharide vaccine, 23 valent MACI MACARIO DO [facility] 03-19-2011 zoster vaccine, live MACI MACARIO DO [facility] Payers Date Payer Category Payer Self-pay [id number] 2023 Self-pay [id number] 2022 Private Health Insurance 101 [id number] 1945 Unknown [id number] 2.16.8 [id number] 1945 Unknown [id number] 2.16.8 [id number] 1945 Unknown [id number] 2.16.8 [id number] 1945 Unknown [id number] 2.16.8 [id number] 1945 Unknown [id number] 2.16.8 [id number] 1945 Unknown [id number] 2.16.8 [id number] 1945 Unknown [id number] 2.16.8 [id number] Unknown [id number] 2.16.8 [id number] Unknown [id number] 2.16.8 [id number] Unknown [id number] 2.16.8 [id number] Unknown [id number] 2.16.8 [id number] Unknown [id number] 2.16.8 [id number] Social History Date Type Detail Facility Start: 12-11-2020 Never smoked t obacco (finding) [facility] Start: 1945 Sex Assigned At Female [facility] Tobacco smoking stat [facility] Unknown if ever smoked [facility] Work Phone: Start: 07-07-2024 Sex Female (finding) [facility] Functional Status Date Assessment Result Facility 05-02-2022 Functional Status Objective: Cardiovascular screen: BP: HR: 95 BPM O2 sat: 97% Gait: Mild Antalgic with FWW appears steady Weight bearing status: WBAT Effusion: no effusion, redness or excess Functional Strength: sit to stand: Supervised: Requires cues for hand placement initially, relies heavily on UE's Palpation: denies tenderness to palpation bilat ankles and calf, no excess warmth or obvious signs of infection. 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 [facility] 04-30-2022 Functional Status Independent [facility] 04-30-2022 Functional Status [facility] 04-30-2022 Functional Status [facility] 04-30-2022 Functional Status Independent [facility] 04-30-2022 Functional Status Assistive Equipment ice on [facility] 04-29-2022 Functional Status Demonstrates C orrect Call Light Use Yes [facility] 04-29-2022 Functional Status Dinner Percent 50 [facility] 04-29-2022 Functional Status [facility] 04-29-2022 Functional Status Linen Change Done [facility] 04-29-2022 Functional Status Multilevel home [facility] 04-29-2022 Functional Status Maintained, More than 8 hours [facility] 04-15-2022 Functional Status Sensory Deficits None [facility] Mental Status Date Assessment Result Facility 04-30-2022 Mental Status Oriented x 4 [facility] 04-30-2022 Mental Status [facility] 04-30-2022 Mental Status [facility] Clinical Notes 04-29-2022 to 03-02-2023 Note Date & Type Note Facility 03-02-2023 Note ORIGINAL EXAMINATION: BONE DENSITOMETRY 03/02/2023 11:13 am TECHNIQUE: A bone density dual x-ray absorptiometry (DEXA) scan was performed of the axial (e.g. hips, spine) and/or appendicular (e.g. radius) skeleton as appropriate on a Hologic system. COMPARISON: 02/22/2021. HISTORY: ORDERING SYSTEM PROVIDED HISTORY: Reason for Exam: Osteoporosis Screening FINDINGS: BMD (g/cm2) Lumbar Spine L1-L4: 0.894. T Score Lumbar Spine L1-L4: -1.4 BMD (g/cm2) 1/3 Left Forearm: 0.609. T Score 1/3 Left Forearm: -1.3 BMD (g/cm2) Total left Forearm: 0.484. T Score Total Left Forearm: -1.6 BMD Change from previous Lumbar spine: -0.5% 10 year probability of fracture: FRAX not reported as the patient reports actively being treated for osteoporosis. IMPRESSION: Osteopenia by WHO criteria. *By the World Health Organization criteria: (Comparing with young normal sex matched population) - Normal: T-score at or above -1 SD (standard deviation) - Osteopenia: T-score between -1 and -2.5 SD - Osteoporosis: T-score at or below -2.5 SD I have personally reviewed the images of this examination and agree with the resident's findings and interpretation. Interpreted by: Michelle Bernard Preliminary Report By: Linda Kim Electronically signed By Michelle Bernard Dictated Date: 03/02/2023 11:15:16 AM Prelim Date: 03/02/2023 12:29:59 PM Sign Date: 03/02/2023 12:29:59 PM Ordering Provider: MACI MACARIO [facility] 01-05-2023 Note Exam Date Time Procedure Performing Provider Status 01/05/23 10:23 AM VL Carotid US/Dopple r Complete AOH Auth (Verified) [facility] 01-11-2023 Note Discharge Instructions Thank you for allowing [facility] to assist you with your healthcare needs. The following is importantdischarge information regarding your hospital visit. Your Care Team Falguni Ricardo REPRODUCTIVE HEALTHCARE ASSISTANT Your Diagnosis Osteoarthritis S/P total hip arthroplasty CKD (chronic kidney disease) Chronic GERD Seasonal allergies, Seasonal allergies S/P total left hip arthroplasty What to do next Scheduled Follow-Up Appointments Appointment Type When With Where Contact InformationPT Outpatient Evaluation 05/02/2022 10:00 AM [facility] OV Pre Op 05/21/2022 10:30 AM MACI RAMOS DO [address] [address] Follow Up Appointments Follow Up with RICHARD CASTELLANOS When 05/12/2022 03:30 PM EST Where: [facility] [address] [place] [address]- Business (1) Follow Up with Physical therapy [facility] When 05/02/2022 10:00 AM EST The Following Activity and Diet Have Been Ordered for You Diet: No Changes were made to your diet. Activity: Full weight bearing. Do not get out of bed on operative side The Following Treatments Have Been Ordered for You Discharge Labs No qualifying data available. Discharge Radiology No qualifying data available. Other Therapies No qualifying data available. Post Acute Orders No qualifying data available. Someone Will Contact You Regarding These Home Health Referrals No home referrals have been ordered for you. No one will call you. Allergies ciprofloxacin (pseudomembrane colitis) penicillins (facial swelling) sulfa drugs (vomiting, nausea) Medications Please ask your primary doctor or pharmacist before taking any other medication not listed, including over the counter drugs, herbal medications, vitamins and or supplements as they may interact withyour home medications. What How Much When Why Instructions Last Dose Unchanged acetaminophen (acetaminophen 500 mg oral tablet) 2 tab(s) by mouth Three (3) times a day as needed for as needed for pain not to exceed 3000 mg/ day Pickup at [facility] #[id number] 04/30/22 at 1128am Unchanged albuterol (ProAir HFA MDI (90 mcg/ inh) inhalation aerosol) 2 puff(s) by inhalation Every 6 hours as needed for as needed for wheezing none Unchanged alendronate (alendronate 70 mg oral tablet) 1 tab(s) by mouth Every week Osteopenia none Unchanged aspirin (aspirin 81 mg oral delayed release tablet) 1 tab(s) by mouth Two (2) times a day Duration: 30 Days Take 81 mg aspirin twice daily with food for 4 weeks postoperatively for DVT prophylaxis. Pickup at [facility] #[id number] 04/30/22 at 0820am Unchanged biotin 1,000 Microgram by mouth Once a day none Unchanged chondroitin-glucosamine (Osteo Bi-Flex Triple Strength) 1 tablet by mouth Every day none Unchanged clobetasol topical (Clobetasol (Eqv-Temovate) 0.05% topical cream) apply to affected area twice a day for 2 weeks WHEN FLARED, THEN USE 3 NIGHTS PER WEEK NEEDED none Unchanged dexamethasone/ neomycin/ polymyxin B ophthalmic (dexamethasone/ neomycin/ polymyxin B 1 mg-3.5 mg-10,000 units/ g ophthalmic ointment) 1 application Ophthalmic Three (3) times a day none Unchanged docusate-senna (Senokot S 50 mg-8.6 mg oral tablet) 2 tab(s) by mouth Two (2) times a day Duration: 3 Days Take until first bowel movement, then as needed Pickup at [facility] #[id number] 04/30/22 at 0820am Unchanged esomeprazole (NexIUM 24HR 20 mg oral delayed release capsule) 1 cap by mouth Once a day 04/30/22 at 0820am Unchanged fenofibrate (fenofibrate 145 mg oral tablet) 1 tab(s) by mouth Once a day Hyperlipidemia none Unchanged fluticasone nasal (fluticasone 50 mcg/ inh NASAL spray) 1 spray(s) each nostril Two (2) times a day Seasonal allergies 04/30/22 at 0820am Unchanged guaifenesin-pseudoephedrine (Mucinex D 60 mg-600 mg oral tablet, extended release) 1 tab(s) by mouth Two (2) times a day 04/30/22 at 1216pm Unchanged ketoconazole topical (ketoconazole 2% topical shampoo) WASH THE SCALP ONCE DAILY, LETTING SIT ON THE SCALP FOR 3 TO 5 WA... (REFER TO PRESCRIPTION NOTES). none Unchanged melatonin (melatonin 1 mg oral tablet) 1 tab(s) by mouth Daily at bedtime as needed for as needed for insomnia none Unchanged metroNIDAZOLE topical (metroNIDAZOLE 1% topical gel) 1 application Topical Once a day as needed for Rash apply topically to affected area once daily none Unchanged Misc Medication 1 drop Both eyes Four (4) times a day autologous eye drops for eye drops none Unchanged multivitamin (Multi Vitamin+) 1 tab by mouth Every day 04/30/22 at 1128am Unchanged multivitamin with minerals (PreserVision AREDS) 1 cap by mouth Two (2) times a day none Unchanged ocular lubricant (Systane ophthalmic solution) 1 Drops Ophthalmic Two (2) times a day as needed for for dry eyes none Unchanged traMADol (Ultram 50 mg oral tablet) See instructions S/P total left hip arthroplasty 1-2 tab(s) Oral q6h Pickup at [facility] #[id number] 04/30/22 at 0935am Pharmacy Information [id number]: [address] [place], [place] [id number] [phone] What How Much When Comments Stop Taking APAP/ ASA/ caffeine (Excedrin Extra Strength oral tab (250/250/ 65)) 2 tab(s) by mouth Every 6 hours as needed for for headache Please take this list to your next doctor s visit. Bring all medications you take, including over the counter medications, herbals and other supplements with you to your doctor s visit. Patients and families are reminded to discard old lists and to update any records with all medication providers or retail pharmacies. Education Materials [facility] Post-operative Instructions PLEASE FOLLOW [facility] POST-OP INSTRUCTIONS GIVEN WATCH FOR SIGNS OF INFECTION: call the office ([phone]) if experencing any of the following: (Usually appears 36-48 hours after surgery) Increased temperature (101 degrees Fahrenheit or higher) Redness or swelling Increased uncontrolled pain Foul odor or drainage Calf discomfort Significant swelling Or if having any chest pain, shortness of breath, or difficulty breathing or swallowing call the office or go the nearest Emergency Room. If you have any questions, please call your doctor at the number listed on your follow up instructions. Form: 338A ([id number]) R: 08/24 Additional Information VACCINATE! IT SAVES LIVES! Members of the community who have not yet received the COVID-19 vaccine and would like to receive it can visit one of [facility] vaccine clinics. There are many vaccine clinic locations within the [facility]. For locations and available times, please visit [email or web address] It is important to note that some COVID mobile vaccine clinics are held outdoors and may be canceled in rainy or stormy conditions. To learn more about pediatric vaccinations (ages 5-11), we invite you to visit the [facility] webpage. [email or web address]/[email or web address] [email or web address] learn more about the COVID-19 vaccine, we invite you to visit the [employer] website for a list of frequently asked questions. [email or web address]-[email or web address]/[email or web address]-Aqdakarfuq _[email or web address]-Questions.pdf [facility] Access Instructions: Stay connected with your healthcare team and access your personal medical information anytime with the [employer] Patient Portal.If you would like a full copy of your medical records, please contact the [facility] Medical Records Department, Thursday through Thursday between 8a.m. and 4:30p.m. Please follow the directions below to access the portal: 1.Access the email account you provided upon registration to the [facility].2.Look for an invitation email from [facility].3.Open the email and access the invitation link: Accept Invitation to [facility]4.Fill in the required khan to create your account. Sign into www.[employer] with your username and password that you created in the above steps to stay up to date. You can then view a summary of results, a summary of your visits, and the ability to download your summaries to your computer or send the information securely to a physician. Remember that your healthcare information is confidential, so carefully consider who you will allow to register on the [facility] Patient Portal for access to your information. You can also access the [employer] Patient Portal on the [employer] walter. Simply click on Health Records under [employer] and then click on the [employer] logo. HOW TO SAFELY DISPOSE OF PRESCRIPTION MEDICATIONS Please use one of the following methods to safely dispose of your unused medications. 1.Use a drug disposal kit: the drug disposal pouch allows you to safely discard your old and unuseddrugs. Ask your nurse to give you one when you are discharged.2.Visit a local take-back location: Many local pharmacies and police departments have programs that collect old and unwanted prescriptiondrugs. Call your local pharmacy or go to http://bit.[employer]/4I5Zl6t to find one close to you.3.Make use of household items: Use cat litter or old coffee grounds to dispose medications if other options arenot available. Mix your drugs with these household products, seal them in an airtight container andthrow it into the garbage. Call [facility]: [phone] to be sure your drugs can be disposed of in this way. Some medicines may require a different approach.4.Never flush your medications down the toilet. IF YOU HAVE BEEN PRESCRIBED AN OPIOID FOR PAIN If you have been prescribed an opioid (such as hydrocodone, oxycodone or morphine), it is critical to understand the possible side effects and risks of opioid pain medications. Even when taken as directed, opioids can have several side effects including: Tolerance, meaning you might need to take more of a medication for the same pain relief. Nausea, vomiting and/or constipation. Sleepiness, dizziness, dry mouth, confusion, depression or itching. Physical dependence, meaning you have withdrawal symptoms when a medication is stopped, can develop within a few days. KNOW YOUR RESPONSIBILITIES It is important to know exactly how much and how often to take the opioid pain medications you are prescribed. Never take opioids in higher amounts or more often than prescribed. Do not combine opioids with alcohol or other drugs that cause drowsiness, such as benzodiazepines, also known as benzos, including diazepam and alprazolam, muscle relaxants or sleep aids. Never sell or share prescription opioids. This is illegal. Store opioids in a secure place and out of reach of others (including children, family, friends and visitors). The last page of this document has been signed and retained as a CHART COPY. Signatures Patient Education Materials [address] [place] [address] Post-op Instruction 11/2016 ([id number]) Medication Leaflets My discharge plan and instructions have been reviewed and explained to me and I,SAMANTHA HILL M understand my current condition and have read and understand these discharge instructions. I have received a written copy of the plan/instructions. If I have questions, I am aware that I should contact my doctor. 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 Rueda History of Present Illness 76-year-old female with past medical history significant for GERD, HLD, migraines, CKD, osteoarthritis. Patient presents to [facility] for elective left hip arthroplasty. Patient is being seen in consultation for medical management of the above. Preoperative labs reviewed from 04/08/2023. CBC within normal limits. BUN and creatinine 30 and 1.30 with a GFR of 40. This appears to be near baseline. Overnight patient remained afebrile and hemodynamically stable with adequate oxygen saturations on room air. Labs reviewed, H&H stable. Renal function stable. On exam today, pt denies any fever or chills. She has a sinus headache. Had dizziness this morning that has since resolved.. Denies chest pain, palpitations. No cough, dyspnea, sputum production. Denies N/V/D/C. No melena/hematochezia. No dysuria or hematuria. No new paresthesias. Pain well controlled. Review of Systems See HPI for specific ROS. All other systems reviewed and negative. Physical Exam Vitals and Measurements T: 36.6 C (Oral) TMIN: 36 C (Temporal Artery) TMAX: 36.7 C (Oral) HR: 57(Monitored) RR: 18 BP: 122/72 SpO2: 96% HT: 167.6 cm WT: 64 kg BMI: 22.78 Weight Dosing Weight: 64 kg (04/29/22) Dosing Weight: 64 kg (04/29/22) GEN: Appears chronically ill EYES: No conjunctival erythema, drainage. EOMI EARS: Hearing grossly intact. NOSE: No nasal discharge. THROAT: Oral cavity and pharynx pink and moist. CHEST: Normal S1 and S2. Rhythm is regular. Clear to auscultation, without rales, rhonchi, wheezing. ABD: Positive bowel sounds x 4 quads. Soft, nondistended, nontender. EXT: No significant deformity or joint abnormality. No edema. Peripheral pulses intact. NEURO: Sensation grossly intact SKIN: Surgical dressing in place PSYCH: The mental examination revealed the patient was alert and oriented x 4 Lab Results 04/30 05:41 WBC: 12.2 H Hgb: 11.5 L Hct: 33.2 L Platelet: 198 Neutrophil %: 90.4 H Glucose Level: 98 Sodium Level: 137 Potassium Level: 4.3 BUN: 28 H Creatinine Lvl (s): 0.98 Assessment/Plan 1. Osteoarthritis 2. S/P total hip arthroplasty 3. CKD (chronic kidney disease) 4. Chronic GERD 5. Seasonal allergies Ordered: fluticasone nasal, Start: 04/29/22 21:00:00 EST, 50 mcg, Dose = 1 spray(s), [place], Nostril, each, BID, 0, 04/29/22 20:37:00 EST Osteoarthritis s/p left total hip arthroplasty. Management per primary team. Pain well controlled. CKD at baseline GERD Pepcid. Seasonal allergies patient felt sinus pressure and dizziness first thing this morning. She states that this is a chronic issue and she takes Mucinex D to prevent any further issues including migraine. She was able to be out of bed, ambulating in room, participating with occupational therapy with nodizziness or other adverse effect. Patient was told that her may bring in Mucinex D and shecan take it here. Medically she is optimized for discharge. DVT prophylaxis: SCDs Labs, diagnostics, and progress notes reviewed as noted in HPI Code Status: Full code Plan of care discussed with patient. All questions answered. Patient verbalizes understanding is agreeable to plan of care. Thank you for requesting our participation in the care of your patient. We will continue to follow during their hospitalization. This dictation was performed using voice recognition software and may include grammatical and/or spelling errors. Problem List/Past Medical History Ongoing Acute sinusitis Arthritis Back pain Bilateral hip pain Cholesterol Contact dermatitis Dizziness Elevated blood pressure reading without diagnosis of hypertension GERD without esophagitis Has received influenza vaccination in current influenza season Hyperlipidemia Medicare annual wellness visit, subsequent Migraine Need for hepatitis C screening test Need for influenza vaccination Need for Streptococcus pneumoniae vaccination Osteopenia Preoperative clearance Risk and functional assessment Rosacea Screening for breast cancer Screening for colon cancer Screening for diabetes mellitus Screening for ischemic heart disease Screening for osteoporosis Seasonal allergies Skin lesion Skin rash Well adult exam Historical No qualifying data Procedure/Surgical History Hip arthroplasty: 04/29/22 Colonoscopy: 06/10/17 History of repair of rotator cuff Salpingectomy Appendectomy Tubal ligation Dilation and curettage Carpal tunnel release Cataract extraction Colectomy Medications Inpatient Terry Aspirin, 81 mg= 1 tab(s), Oral, BIDM Benadryl, 25 mg= 1 tab(s), Oral, q6h, PRN Benadryl, 25 mg= 0.5 mL, IV Push, q6h, PRN Cerovite Advanced Formula, 1 tab(s), Oral, qDayM Colace, 100 mg= 1 cap(s), Oral, BID Fleet Enema, 133 mL, Rectal, qDay, PRN fluticasone 50 mcg/inh NASAL spray, 50 mcg= 1 spray(s), Nostril, each, BID LR 1,000 mL, 1000 mL, Intravenous Milk of Magnesia, 30 mL, Oral, Daily morphine, 2 mg= 1 mL, IV Push, q1h, PRN Pepcid, 20 mg= 1 tab(s), Oral, qDay prochlorperazine, 5 mg= 1 mL, IV Push, q6h, PRN Senokot S, 2 tab(s), Oral, BID Tylenol, 1000 mg= 2 tab(s), Oral, q6hr Tylenol, 650 mg= 2 tab(s), Oral, q4h, PRN Ultram, 50 mg= 1 tab(s), Oral, q6h Ultram, 50 mg= 1 tab(s), Oral, q6h, PRN Zofran, 4 mg= 2 mL, IV Push, q8h, PRN Home acetaminophen 500 mg oral tablet, 1000 mg= 2 tab(s), Oral, TID, PRN alendronate 70 mg oral tablet, 70 mg= 1 tab(s), Oral, qWeek, 3 refills aspirin 81 mg oral delayed release tablet, 81 mg= 1 tab(s), Oral, BID biotin, 1000 mcg, Oral, qDay Clobetasol (Eqv-Temovate) 0.05% topical cream dexamethasone/neomycin/polymyxin B 1 mg-3.5 mg-10,000 units/g ophthalmic ointment, 1 walter, Ophthalmic, TID fenofibrate 145 mg oral tablet, 145 mg= 1 tab(s), Oral, qDay, 1 refills fluticasone 50 mcg/inh NASAL spray, 1 spray(s), Nostril, each, BID, 5 refills ketoconazole 2% topical shampoo melatonin 1 mg oral tablet, 1 mg= 1 tab(s), Oral, qHS, PRN metroNIDAZOLE 1% topical gel, 1 walter, Topical, qDay, PRN Misc Medication, 1 drop, Eyes, both, QID Mucinex D 60 mg-600 mg oral tablet, extended release, 1 tab(s), Oral, BID Multi Vitamin+, 1 tab, Oral, Daily NexIUM 24HR 20 mg oral delayed release capsule, 20 mg= 1 cap(s), Oral, qDay Osteo Bi-Flex Triple Strength, 1 tablet, Oral, Daily PreserVision AREDS, 1 cap(s), Oral, BID ProAir HFA MDI (90 mcg/inh) inhalation aerosol, 2 puff(s), Inhalation, q6hr, PRN Senokot S 50 mg-8.6 mg oral tablet, 2 tab(s), Oral, BID Systane ophthalmic solution, 1 drop(s), Ophthalmic, BID, PRN Ultram 50 mg oral tablet, See Instructions Allergies ciprofloxacin (pseudomembrane colitis) penicillins (facial swelling) sulfa drugs (vomiting, nausea) Social History Smoking Status - 06/10/2017 Never smoker Alcohol - No Risk, 06/05/2017 Use: Current. Type: Wine. Frequency: 1-2 times per year., 01/29/2019 Home/Environment Domestic Concerns: None. Living situation: Home/Independent. Primary Utility Bill Complaints Investigator: self. Lives In: Multilevel home. Current Home Treatments None. Professional Skilled Services or Special Community Resources None. Financial concerns: No. Spouse Name: Gina. Marital Status: ., 04/29/2022 Nutrition/Health Type of diet: Low sodium. Appetite Good. Eating Difficulties None. Enteral Feedings No. TPN Feedings No. Skin Breakdown No. Caffeine intake amount: occasionally coke., 04/29/2022 Substance Abuse - No Risk, 06/05/2017 Use: Never., 01/29/2019 Tobacco Nicotine Use: Never (less than 100 in lifetime). Exposure to Tobacco Smoke Lives in non-smoking home., 12/11/2020 Family History Blood clot: Father. Breast cancer: Mother. Depression: Sister. Heart attack: Mother. Heart procedure: Mother. Immunizations pneumococcal 13-valent conjugate vaccine: 0 unknown unit (03/07/16) pneumococcal 23-valent vaccine(Pneumovax: 0.5 mL (12/11/20) pneumococcal 23-valent vaccine(Pneumovax: 0 unknown unit (04/20/11) pneumococcal 23-valent vaccine(Pneumovax: 0 unknown unit (03/19/11) SARS-CoV-2 (COVID-19) mRNA-1273 vaccine: 0.25 unknown unit (07/19/21) SARS-CoV-2 (COVID-19) mRNA-1273 vaccine: 0.25 unknown unit (03/09/21) SARS-CoV-2 (COVID-19) mRNA-1273 vaccine: 100 mcg (07/23/20) SARS-CoV-2 (COVID-19) mRNA-1273 vaccine: 100 mcg (06/25/20) tetanus/diphth/pertuss (Tdap) adult/adol: 0.5 unknown unit (01/03/22) zoster vaccine live: 0 unknown unit (04/20/11) zoster vaccine live: 0 unknown unit (03/19/11) zoster vaccine, inactivated: 1 unknown unit (11/23/19) zoster vaccine, inactivated: 1 unknown unit (09/19/19) Digitally Signed by FALGUNI RICARDO on 04/30/2022 11:59 AM [facility]01-11-2023 Hospital Discharge instructions Patient Education 04/30/2022 06:52:06 5 - [facility] Post-op Instruction 11/2016 (62801) [facility] Post-operative Instructions PLEASE FOLLOW [facility] POST-OP INSTRUCTIONS GIVEN WATCH FOR SIGNS OF INFECTION: call the office ([phone]) if experencing any of the following: (Usually appears 36-48 hours after surgery) Increased temperature (101 degrees Fahrenheit or higher) Redness or swelling Increased uncontrolled pain Foul odor or drainage Calf discomfort Significant swelling Or if having any chest pain, shortness of breath, or difficulty breathing or swallowing call the office or go the nearest Emergency Room. If you have any questions, please call your doctor at the number listed on your follow up instructions. Form: 338A (19253) R: 08/24 Follow Up Care 03/11/2022 07:50:26 With:Physical therapy [facility] Address:Unknown When:05/02/2022 10:00:00 With:RIHCARD CASTELLANOS Address: [facility] [address] [place] [address] [place] [address]- Business (1) When:05/12/2022 15:30:00 [facility] Sarah 01-11-2023 Note Date of Service April 30, 2022 Subjective The patient was sitting in bed upon examination. Patient denies any chest pain, shortness of breath, dizziness, lightheadedness, nausea or vomiting, or calf pain. No adverse overnight events. Pain has been controlled on medications. Patient overall is doing well this morning. She has no significantcomplaints today. Objective Vitals and Measurements T: 36.7 C (Oral) TMIN: 36 C (Temporal Artery) TMAX: 36.7 C (Oral) HR: 64(Monitored) RR: 18 BP: 115/68 SpO2: 96% HT: 167.6 cm WT: 64 kg BMI: 22.78 Intake and Output 7AM Yesterday to 7AM Today Intake and Output (Last 24 hours) Intake Oral Intake 280.00 Administration Information 1055.04 Supplement Intake 0.00 Output Intra-Op EBL 150.00 Stool Count 0.00 Urine Count 3.00 Total Summary Total Intake 1335.04 Total Output 150.00 Fluid Balance 1185.04 Physical Exam Vital signs stable, afebrile. Patient did have a few readings of decreased O2 saturation but currently has been on room air within normal limits SCDs and SHAGGY hose are in place bilaterally Patient is able to plantarflex and dorsiflex actively Sensation is intact to saphenous, sural, superficial and deep peroneal, and tibial distribution Dressing is clean dry and intact Negative signs and symptoms of DVT, negative Homans bilaterally Weight Dosing Weight: 64 kg (04/29/22) Dosing Weight: 64 kg (04/29/22) Medications Medications (20) Active Scheduled: (11) acetaminophen 500 mg Tablet 1,000 mg 2 tab(s), Oral, q6hr aspirin 81 mg Chewable 81 mg 1 tab(s), Oral, BIDM bisacodyl 5 mg EC tablet 10 mg 2 tab(s), Oral, Once docusate sodium 100 mg Capsule 100 mg 1 cap(s), Oral, BID docusate-senna (Senokot S) 50 mg-8.6 mg Tablet 2 tab(s), Oral, BID famotidine 20 mg tablet 20 mg 1 tab(s), Oral, qDay fluticasone nasal 0.05 mg/inh [place] 50 mcg 1 spray(s), Nostril, each, BID magnesium hydroxide 8% Suspension 30 mL UD 30 mL, Oral, Daily multivitamin (Myadec) with minerals Therapeutic Multiple Vitamins with Minerals Tablet 1 tab(s), Oral, qDayM ondansetron 2 mg/ 1 mL 2 mL INJ 4 mg 2 mL, IV Push, q8hr tramadol 50 mg Tablet 50 mg 1 tab(s), Oral, q6h Continuous: (1) Lactated Ringers 1,000 mL 1,000 mL, Intravenous, 100 mL/hr PRN: (8) acetaminophen 325 mg Tablet 650 mg 2 tab(s), Oral, q4h diphenhydramine 25 mg tablet 25 mg 1 tab(s), Oral, q6h diphenhyDRAMINE 50 mg/mL (1 mL) INJ 25 mg 0.5 mL, IV Push, q6h morphine 2 mg/mL 1 mL syringe 2 mg 1 mL, IV Push, q1h ondansetron 2 mg/ 1 mL 2 mL INJ 4 mg 2 mL, IV Push, q8h prochlorperazine 10 mg/2 mL vial 5 mg 1 mL, IV Push, q6h sodium biphosphate-sodium phosphate 19 gm-7 gm Enema 133 mL, Rectal, qDay tramadol 50 mg Tablet 50 mg 1 tab(s), Oral, q6h Lab Results 04/30 05:41 WBC: 12.2 H Hgb: 11.5 L Hct: 33.2 L Platelet: 198 Neutrophil %: 90.4 H Glucose Level: 98 Sodium Level: 137 Potassium Level: 4.3 BUN: 28 H Creatinine Lvl (s): 0.98 EKG No qualifying data available. Assessment/Plan 1. Osteoarthritis 2. S/P total hip arthroplasty 1. Status post left direct anterior total hip arthroplasty postop day #1 2. Continue pain medications: Tylenol and tramadol 3. DVT prophylaxis: Take 81 mg aspirin twice daily with food for 4 weeks postoperatively for DVT prophylaxis. Denies previous history of DVT or pulmonary embolism 4. Physical therapy: Weightbearing as tolerated with walker 5. H & H: 11.5/33.2, asymptomatic. Postoperative anemia secondary to acute blood loss from surgery without intraoperative complications. 6. Reactive leukocytosis: Currently 12.2, afebrile. Patient did receive Decadron intraoperatively 7. Encouraged incentive spirometry 8. Continue postoperative medical management per medicine 9. Disposition: Plan will be for probable discharge home this afternoon. Her pain is been well controlled. As long as she tolerates therapy and is medically stable we will plan for discharge home today. She would like her prescriptions E scribed to [facility] in [facility]. She has outpatient physical therapy established. She will follow-up per postop instructions. She was instructed to contact her office upon discharge with any concerns or questions. I have reviewed the [place] Automated Rx Reporting System (OARRS) report for this patient for refill pattern and other prescriber involvement as part of the appropriate surveillance for the provision ofacute and chronic controlled medications. The report was requested and reviewed on the date of thisentry, and was considered in the prescribing process This dictation was created using voice recognition software. Phonetic and/or grammatical errors mayexist. 3. CKD (chronic kidney disease) 4. Chronic GERD Digitally Signed by RICHARD CASTELLANOS PA-C on 04/30/2022 06:51 AM [facility]01-10-2023 Note ORIGINAL Images acquired, not reported on this accession number. [facility]01-10-2023 Note ORIGINAL Images acquired, not reported on this accession number.[facility]01-10-2023 Note ORIGINAL EXAMINATION: 3 XRAY VIEWS OF THE LEFT HIP. 1 VIEW OF THE PELVIS. COMPARISON: Left hip radiographs dated 07/30/2016. HISTORY: ORDERING SYSTEM PROVIDED HISTORY: Reason for Exam: Status Post Arthroplasty FINDINGS: The visualized pelvis is intact. The SI joints are symmetric bilaterally. The right hip is visualized with moderate joint space narrowing and subchondral sclerosis. No acute fracture or dislocation is seen. Postsurgical changes are seen status post left total hip arthroplasty without acute fracture, dislocation, or hardware failure. Mild amounts of subcutaneous emphysema are seen and expected in the postsurgical state. No unexpected radiopaque foreign body is seen. IMPRESSION: Expected postsurgical changes status post left total hip arthroplasty. Moderate degenerative changes of the right hip. Interpreted by: Juan Jose Rivas MD Preliminary Report By: Juan Jose Rivas MD Electronically signed By Juan Jose Rivas MD Dictated Date: 04/29/2022 1:02:36 PM Prelim Date: 04/29/2022 1:04:06 PM Sign Date: 04/29/2022 1:04:06 PM Ordering Provider: [facility]01-10-2023 Note ORIGINAL EXAMINATION: 3 XRAY VIEWS OF THE LEFT HIP. 1 VIEW OF THE PELVIS. COMPARISON: Left hip radiographs dated 07/30/2016. HISTORY: ORDERING SYSTEM PROVIDED HISTORY: Reason for Exam: Status Post Arthroplasty FINDINGS: The visualized pelvis is intact. The SI joints are symmetric bilaterally. The right hip is visualized with moderate joint space narrowing and subchondral sclerosis. No acute fracture or dislocation is seen. Postsurgical changes are seen status post left total hip arthroplasty without acute fracture, dislocation, or hardware failure. Mild amounts of subcutaneous emphysema are seen and expected in the postsurgical state. No unexpected radiopaque foreign body is seen. IMPRESSION: Expected postsurgical changes status post left total hip arthroplasty. Moderate degenerative changes of the right hip. Interpreted by: Juan Jose Rivas MD Preliminary Report By: Juan Jose Rivas MD Electronically signed By Juan Jose Rivas MD Dictated Date: 04/29/2022 1:02:36 PM Prelim Date: 04/29/2022 1:04:06 PM Sign Date: 04/29/2022 1:04:06 PM Ordering Provider: [facility]01-10-2023 Anesthesiology Consult note Patient: SAMANTHA HILL Age: 76 years Sex: Female : 1945 Associated Diagnoses: None Author: YANNICK CORREA APRN-RAF Assessment Postanesthesia assessment Vitals: Reviewed Results: Vital signs from flowsheet : Vital Signs(Date Range: 04/28/2022 0:00 EST - 04/29/2022 12:03 EST) . Mental status: at preoperative baseline, alert & oriented x 4. Respiratory function: lungs are clear to auscultation. Respiratory support: none. CV function: Normal rate. Cardiovascular support: none. Pain. Nausea status: denies nausea. Postoperative hydration status: within normal limits. Digitally Signed by YANNICK CORREA on 04/29/2022 12:04 PM [facility]01-10-2023 Anesthesiology Consult note Patient: SAMANTHA HILL Age: 76 years Sex: Female : 1945 Associated Diagnoses: None Author: YANNICK CORREA Preoperative Information Time of last food or liquid consumption: 04/29/2022 00:00:00 Anesthesia history Patient's history: negative. Family's history: negative. Health Status Allergies: Allergic Reactions (Selected) Severity Not Documented Ciprofloxacin- Pseudomembrane colitis. Penicillins- Facial swelling. Sulfa drugs- Nausea and vomiting., Allergies (3) ActiveReaction ciprofloxacinpseudomembrane colitis penicillinsfacial swelling sulfa drugsnausea Current medications: (Selected) Inpatient Medications Ordered Cleocin Phosphate: 600 mg, 50 mL, 100 mL/hr, IV Piggyback, PREOP pharm Decadron: 10 mg, 1 mL, IV Push, PREOP pharm LR 1,000 mL: 20 mL/hr, Intravenous, Stop: 04/29/22 23:59:00 EST tranexamic acid 1 g / 100 mL 0.7% NaCl PMX: 1 gram(s), 100 mL, 300 mL/hr, IV Piggyback, PREOP pharm tranexamic acid 1 g / 100 mL 0.7% NaCl PMX: 1 gram(s), 100 mL, 300 mL/hr, IV Piggyback, PREOP pharm Prescriptions Prescribed alendronate 70 mg oral tablet: 70 mg, 1 tab(s), Oral, qWeek, 13 tab(s), 3 Refill(s) fenofibrate 145 mg oral tablet: 145 mg, 1 tab(s), Oral, qDay, 90 tab(s), 1 Refill(s) fluticasone 50 mcg/inh NASAL spray: 1 spray(s), Nostril, each, BID, 1 EA, 5 Refill(s) Documented Medications Documented Clobetasol (Eqv-Temovate) 0.05% topical cream: apply to affected area twice a day for 2 weeks WHEN FLARED, THEN USE 3 NIGHTS PER WEEK NEEDED Excedrin Extra Strength oral tab (250/250/65): 2 tab(s), Oral, q6h, PRN: for headache, 0 Refill(s) Misc Medication: 1 drop, Eyes, both, QID, autologous eye drops for eye drops, 0 Refill(s) Mucinex D 60 mg-600 mg oral tablet, extended release: 1 tab(s), Oral, BID, 0 Refill(s) Multi Vitamin+: 1 tab, Oral, Daily, 0 Refill(s) NexIUM 24HR 20 mg oral delayed release capsule: 20 mg, 1 cap(s), Oral, qDay, 0 Refill(s) Osteo Bi-Flex Triple Strength: 1 tablet, Oral, Daily, 0 Refill(s) PreserVision AREDS: 1 cap(s), Oral, BID, 0 Refill(s) ProAir HFA MDI (90 mcg/inh) inhalation aerosol: 2 puff(s), Inhalation, q6hr, PRN: as needed for wheezing, 0 Refill(s) Systane ophthalmic solution: 1 drop(s), Ophthalmic, BID, PRN: for dry eyes, 30 mL, 0 Refill(s) biotin: 1,000 mcg, Oral, qDay, 0 Refill(s) dexamethasone/neomycin/polymyxin B 1 mg-3.5 mg-10,000 units/g ophthalmic ointment: 1 walter, Ophthalmic, TID, 0 Refill(s) ketoconazole 2% topical shampoo: WASH THE SCALP ONCE DAILY, LETTING SIT ON THE SCALP FOR 3 TO 5 WA... (REFER TO PRESCRIPTION NOTES). melatonin 1 mg oral tablet: 1 mg, 1 tab(s), Oral, qHS, PRN: as needed for insomnia, 90 tab(s), 0 Refill(s) metroNIDAZOLE 1% topical gel: 1 walter, Topical, qDay, apply topically to affected area once daily, PRN: Rash, Medications (5) Active Scheduled: (4) clindamycin PMX 600 mg 50 mL, IV Piggyback, PREOP pharm dexamethasone 10 mg/mL (1mL) SDV 10 mg 1 mL, IV Push, PREOP pharm tranexamic acid PMX 1 gram(s) 100 mL, IV Piggyback, PREOP pharm tranexamic acid PMX 1 gram(s) 100 mL, IV Piggyback, PREOP pharm Continuous: (1) Lactated Ringers 1,000 mL 1,000 mL, Intravenous, 20 mL/hr PRN: (0) Problem list: Medical Acute sinusitis / SNOMED CT 56666196 / Confirmed Arthritis / SNOMED CT 0446798 / Confirmed Back pain / SNOMED CT [id number] / Confirmed Cholesterol / SNOMED CT 494294631 / Confirmed Contact dermatitis / SNOMED CT 53060961 / Confirmed Dizziness / SNOMED CT 6822247877 / Confirmed Elevated blood pressure reading without diagnosis of hypertension / SNOMED CT 1473290099 / Confirmed Skin rash / SNOMED CT 631004124 / Confirmed GERD without esophagitis / SNOMED CT 2562629960 / Confirmed Bilateral hip pain / SNOMED CT 01560144 / Confirmed Hyperlipidemia / SNOMED CT 51918569 / Confirmed Has received influenza vaccination in current influenza season / SNOMED CT 375078276 / Confirmed Migraine / SNOMED CT [id number] / Confirmed Need for influenza vaccination / SNOMED CT 677441992 / Confirmed Osteopenia / SNOMED CT 294578904 / Confirmed Medicare annual wellness visit, subsequent / SNOMED CT 630250336 / Confirmed Screening for diabetes mellitus / SNOMED CT 402014383 / Confirmed Screening for ischemic heart disease / SNOMED CT 617656304 / Confirmed Screening for breast cancer / SNOMED CT 685483960 / Confirmed Screening for colon cancer / SNOMED CT 545837444 / Confirmed Screening for osteoporosis / SNOMED CT 482521624 / Confirmed Well adult exam / SNOMED CT 376501020 / Confirmed Risk and functional assessment / SNOMED CT 439217161 / Confirmed Preoperative clearance / SNOMED CT 095072175 / Confirmed Need for Streptococcus pneumoniae vaccination / SNOMED CT 3040948204 / Confirmed Rosacea / SNOMED CT 7470286630 / Confirmed Seasonal allergies / SNOMED CT [id number] / Confirmed Skin lesion / SNOMED CT 149757177 / Confirmed Need for hepatitis C screening test / SNOMED CT 329451274 / Confirmed, Active Problems (29) Acute sinusitis Arthritis Back pain Bilateral hip pain Cholesterol Contact dermatitis Dizziness Elevated blood pressure reading without diagnosis of hypertension GERD without esophagitis Has received influenza vaccination in current influenza season Hyperlipidemia Medicare annual wellness visit, subsequent Migraine Need for hepatitis C screening test Need for influenza vaccination Need for Streptococcus pneumoniae vaccination Osteopenia Preoperative clearance Risk and functional assessment Rosacea Screening for breast cancer Screening for colon cancer Screening for diabetes mellitus Screening for ischemic heart disease Screening for osteoporosis Seasonal allergies Skin lesion Skin rash Well adult exam Histories Past Medical History: No active or resolved past medical history items have been selected or recorded., reduced kidney function, asthma Family History: Blood clot Father Breast cancer Mother Heart attack Mother Depression Sister Heart procedure Mother Procedure history: Colonoscopy ([id number]) on 06/10/2017 at 71 Years. Appendectomy ([id number]). Tubal ligation ([id number]). Dilation and curettage ([id number]). Carpal tunnel release ([id number]). Comments: 06/05/2017 11:13 MIKE SANABRIA RN RIGHT Cataract extraction ([id number]). Comments: 06/05/2017 11:14 MIKE SANABRIA RN BILATERAL Colectomy ([id number]). Salpingectomy ([id number]). Comments: 02/01/2020 10:22 Berkley Hendricks LPN bilateral History of repair of rotator cuff ([id number]). Comments: 04/29/2022 9:05 Gi Crowder RN left Social History Social & Psychosocial Habits Alcohol 06/05/2017Risk Assessment: No Risk 01/29/2019 Use: Current Type: Wine Frequency: 1-2 times per year Substance Abuse 06/05/2017Risk Assessment: No Risk 01/29/2019 Use: Never Tobacco 12/11/2020 Tobacco Use: Never (less than 100 in l Exposure to Tobacco Smoke Lives in non-smoking home Home/Environment 04/29/2022 Domestic Concerns None Living situation: Home/Independent Primary Utility Bill Complaints Investigator: self Lives In Multilevel home Current Home Treatments None Special Services and Community Resources None Spouse Name Roladdison Marital Status of Patient if Patient Independent Adult: Nutrition/Health 02/01/2020 Caffeine intake amount: occasional coke, exedrin has caffeine in it. . Physical Examination Vital Signs 04/29/2022 9:42 EST Temperature Temporal Artery 36.5 DegC Apical Heart Rate 82 bpm Respiratory Rate 12 br/min LOW Systolic Blood Pressure Non-Invasive 140 mmHg HI Diastolic Blood Pressure Non-Invasive 97 mmHg HI Vital Signs(last 24 hrs) Last Charted Resp Rate L 12br/min (APR 29 09:42) SBPH 140mmHg (APR 29:42) DBPH 97mmHg (APR 29:42) Measurements from flowsheet : Measurements 04/29/2022 9:42 EST Height 167.6 cm Height in inches 66 inch(es) Admission Weight 64 kg Weight Lbs 140.8 lb Weight Method Stated [place] Body Weight 59.26 kg Admission Body Mass Index 22.78 m2 Pain assessment: Pain Assessment 04/29/2022 9:52 EST Primary Pain Intensity Not Done: See OR Record (Not Done) Primary Pain Intensity Not Done: See OR Record (Not Done) 04/29/2022 9:42 EST Primary Pain Location Hip Primary Pain Laterality Left Primary Pain Intensity 4 Primary Pain Nonverbal Response Appears restful Pain Scale Type 0-10 Pain scale . General: Alert and oriented. Airway: Normal temporomandibular joint mobility. Mallampati classification: II (soft palate, fauces, uvula visible). Head: Normocephalic. Dentition Evaluation: Intact, Capped teeth. Neck: Supple. Respiratory: Lungs are clear to auscultation. Cardiovascular: Normal rate. Heart Sounds: Normal. Gastrointestinal: Soft. Musculoskeletal Normal range of motion. Integumentary: Intact. Neurologic: Alert. Review / Management Results review: No qualifying data available , Lab results 04/29/2022 9:52 EST Primary Pain Intensity Not Done: See OR Record (Not Done) Primary Pain Intensity Not Done: See OR Record (Not Done) epinephrine Not Done: See OR Record (Not Done) epinephrine Not Done: See OR Record (Not Done) morphine Not Done: See OR Record (Not Done) morphine Not Done: See OR Record (Not Done) povidone iodine topical Not Done: See OR Record (Not Done) ropivacaine Not Done: See OR Record (Not Done) ropivacaine Not Done: See OR Record (Not Done) 04/29/2022 9:45 EST SN - Preop - CTm Pt Ready for OR/Proced 04/29/2022 9:44 04/29/2022 9:44 EST citric acid-sodium citrate Not Done: Not Appropriate at this Time (Not Done) 04/29/2022 9:42 EST Height 167.6 cm Height in inches 66 inch(es) Admission Weight 64 kg Weight Lbs 140.8 lb Weight Method Stated [place] Body Weight 59.26 kg Admission Body Mass Index 22.78 m2 Temperature Temporal Artery 36.5 DegC Apical Heart Rate 82 bpm Respiratory Rate 12 br/min LOW Systolic Blood Pressure Non-Invasive 140 mmHg HI Diastolic Blood Pressure Non-Invasive 97 mmHg HI Primary Pain Location Hip Primary Pain Laterality Left Primary Pain Intensity 4 Primary Pain Nonverbal Response Appears restful Pain Scale Type 0-10 Pain scale Monitor Alarms On and Limits Checked Nail Bed Color [place] Capillary Refill < 2 seconds Heart Sounds ICU S1S2 Heart Rhythm Regular Murmur Auscultated No Dorsalis Pedis Pulse, Left 2+ Normal Dorsalis Pedis Pulse, Right 2+ Normal Respirations Unlabored Respiratory Pattern Regular Breath Sounds Auscultated Anterior only All Lobes Breath Sounds Clear Cough None Oxygen Therapy Room air Oxygen Saturation 100 % Abdomen Description Soft, Rounded Bowel Sounds All Quadrants Present Urinary Elimination Voiding, no difficulties Skin Symptoms Rash All Extremity Description [place]hes Skin Temperature Warm Temperature All Extremities Warm Skin Description [place], Dry Skin Integrity Intact Skin Moisture General Dry IV Present Present Continuous IV Infusions LR Hand Right 04/29/2022 20 gauge Peripheral IV Activity: Insert new site Peripheral IV Dressing Condition: Clean, Dry, Intact Peripheral IV Dressing Activity: Applied, Transparent dressing Peripheral IV Line Status/Patency: Continuous infusion, Good blood return Peripheral IV Site Condition: No complications Peripheral IV Equipment: Extension set, PRN Adaptor Peripheral IV Number of Attempts: 1 Neurological Symptoms Patient denies Extremity Movement Equal Characteristics of Speech Clear Level of Consciousness Alert Strength All Extremities Strong Tone All Extremities Normal Sensation All Extremities Intact Affect/Behavior Appropriate, Calm, Cooperative Orientation Oriented x 4 Allergies Yes Consent Form Signed Yes Patient Dressed In Hospital gown, No undergarments Pre-op Preparation Glasses removed, Shave prep done by clippers CHG Preoperative Wash/Wipe Night before procedure, Day of procedure, Site specific wipe Preop Nasal Swab Povidone-Iodine CHG Skin Prep Completed for Eligible Surgery History & Physical Update On Chart Yes History & Physical On Chart Yes MRSA/MSSA Protocol Yes Belongings At Bedside Glasses, Pants, Shirt, Shoes, Socks, Undergarments Activity Status ADL Awake, Repositions self, Resting NPO Status Maintained, More than 8 hours Standard Safety ID band on, Allergy Band on, Call device within reach, Bed in low position, Wheels locked, Upper/Half-Length side-rails up, Visitor at bedside, Non-Slip footwear Demonstrates Correct Call Light Use Yes famotidine 20 mg mg oxyCODONE 10 mg mg Allergy Band on and Verified Yes Patient ID Band on and Verified Yes Implants Verified Yes Pacemaker/AICD Verified Yes Anesthesia Consent Signed Yes Blood Consent Signed Yes Last Fluid Intake 04/28/2022 20:30 Last Food Intake 04/28/2022 20:30 Last Void 04/29/2022 6:30 04/29/2022 9:35 EST vancomycin 1 gram(s) gram(s) Lactated Ringers Injection 1,000 mL mL Sodium Chloride 0.9% 250 mL mL 04/29/2022 9:07 EST Infectious Disease Symptoms Patient states no symptoms Safety Brochure Information Reviewed Yes [facility] Video Viewed No Teaching Evaluation Verbalizes/Nonverbally indicates understanding Patient's Current Physicians Patient's Current Physicians (Modified) Admission Note-Nursing Same Day Patient History (Modified) 04/29/2022 8:55 EST SN - Preop - CTm Pt in SDS Room 04/29/2022 8:55 . Assessment and Plan [place] [employer] (ASA) physical status classification: Class III. Anesthetic Preoperative Plan Premedication: intravenous. Anesthetic technique: Spinal. Induction: intravenously. Postoperative pain management: Per surgeon. Risks discussed: nausea, vomiting, headache, sore throat, dental injury, hypotension, allergic reaction, serious complications. Informed consent: signed by patient. Digitally Signed by YANNICK CORREA on 04/29/2022 10:08 AM [facility] Future App[facility]ments Appointment Date:06/13/2021 11:00:00 AM Scheduled Provider:MACI MACARIO DO Location:[facility] Appointment Type: OV Follow Up [facility] Evaluation + Plan note Future Appointments Appointment Date:01/23/2022 11:30:00 AM Scheduled Provider:MACI MACARIO DO Location:[facility] Appointment Type: OV Appointment Date:02/27/2022 09:45:00 AM Scheduled Provider: Location:[facility] Appointment Type:MA Mammogram Screening Bilateral w/ Fernando Future Scheduled Tests Radiology* MA Mammo Screening Bilateral w/ Fernando 02/27/22 [facility] Evaluation + Plan note Future Appointments Appointment Date:05/21/2022 10:30:00 AM Scheduled Provider:MACI MACARIO DO Location:[facility] Appointment Type:PC OV Pre Op [facility] Evaluation + Plan note Future Appointments Appointment Date:05/02/2022 10:00:00 AM Scheduled Provider: Location:[facility] Appointment Type:PT Outpatient Evaluation Appointment Date:05/21/2022 10:30:00 AM Scheduled Provider:MACI MACARIO DO Location:[facility] Appointment Type:PC OV Pre Op [facility] Evaluation + Plan note Future Appointments Appointment Date:06/13/2022 10:30:00 AM Scheduled Provider: Location:[facility] Appointment Type:PT Outpatient Evaluation Appointment Date:12/16/2022 10:00:00 AM Scheduled Provider:MACI MACARIO DO Location:[facility] Appointment Type:PC Wellness Medicare [facility] Evaluation + Plan note Future Appointments Appointment Date:03/02/2023 10:30:00 AM Scheduled Provider: Location:[facility] Appointment Type:MA Mammogram Screening Bilateral w/ Fernando Appointment Date:03/02/2023 11:00:00 AM Scheduled Provider: Location:[facility] Appointment Type:BD Bone Density DEXA Axial Skeleton Appointment Date:06/30/2023 11:00:00 AM Scheduled Provider:MACI MACARIO DO Location:[facility] Appointment Type:PC OV Future Scheduled Tests Radiology* MA Mammo Screening Bilateral w/ Fernando 03/02/23 * BD Bone Density DEXA Axial Skeleton 03/02/23 [facility] evaluation + Plan note Future Appointments Appointment Date:06/30/2023 11:00:00 AM Scheduled Provider:MACI MACARIO DO Location:[facility] Appointment Type:PC OV [facility] Evaluation + Plan note Future Appointments Appointment Date:03/03/2024 11:30:00 AM Scheduled Provider: Location:[facility] Appointment Type:MA Mammogram Screening Bilateral w/ Fernando Appointment Date:06/21/2024 11:00:00 AM Scheduled Provider:MACI MACARIO DO Location:[facility] Appointment Type:PC OV Future Scheduled Tests Radiology* MA Mammo Screening Bilateral w/ Fernando 03/03/24 [facility] Evaluation + Plan note Future Appointments Appointment Date:03/04/2024 08:00:00 AM Scheduled Provider:MACI MACARIO DO Location:[facility] Appointment Type:PC OV Appointment Date:06/21/2024 11:00:00 AM Scheduled Provider:MACI MACARIO DO Location:[facility] Appointment Type:PC OV [facility] Evaluation noteNo assessment information available [facility] Work Phone: Hospital course Narrative No data available for this section [facility] Hospital Discharge instructions No data available for this section [facility] Progress note No data available for this section [facility] Reason for referral (narrative)No reason for referral information available[facility] Work Phone: Chief Complaint and Reason for Visit Chief Complaint SERUM FOR EYE DROPS Chief Complaint NEED ORDER/WAS TO FA X A WEEK AGO Chief Complaint SERUM FOR EYE DROPS NEED 26 PT LABELS Chief Complaint Admit Date Dry eye syndrome of bilateral lacrimal g lands June 23, 2024 9:47am Summary Purpose Family History No Family History Records Found Advance Directives No Advanced Directives Records FoundNo Advanced Directives Records FoundNo Advanced Directives Records Found Additional Source Comments Goals (unrecognized section and content) Goals may be documented in a n alternate section Care Team (unrecognized sect ion and content) Care Team Personnel Name: HEATH BAUM MD Member Role: Scientist Address: Address: [address] [place], [place] [id number] Name: MACI MACARIO DO Position: P4 Physician - Primary Care Med Service: Active Provider Member Role: Primary Care Physician Address: Address: [address] [place] [address] Name: VESTA EUBANKS Member Role: Dentist Address: Address: [address] [place] [place] [address] Care Team Related Persons Name: GINA HILL Care Team Personnel Name: HEATH BAUM MD Member Role: Scientist Address: Address: [address] [place] [address] Name: MACI MACARIO DO Position: P4 Physician - Primary Care Member Role: Primary Care Physician Address: Address: [address] [place] [address] Name: VESTA EUBANKS Member Role: Dentist Address: Address: [address] [place] [address] Care Team Related Persons Name: GINA HILL Care Team Personnel Name: HEATH BAUM MD Member Role: Scientist Address: Address: [address] [place], [place] [id number] Name: MACI MACARIO DO Position: P4 Physician - Primary Care Member Role: Primary Care Physician Address: Address: [address] [place] [address] Name: VESTA EUBANKS Member Role: Dentist Address: Address: [address] [place] [address] Care Team Related Persons Name: GINA HILL Address: Home [address] [facility] [phone] Care Team Personnel Name: HEATH BAUM MD Member Role: Scientist Address: Address: [address] [place] [phone] [place] Name: MACI MACARIO DO Position: P4 Physician - Primary Care Member Role: Primary Care Physician Address: Address: [address] [place], [place] [address], [place] [address] Name: VESTA EUBANKS Member Role: Dentist Address: Address: [address] [place] [address] Care Team Related Persons Name: GINA HILL Address: Home [address] [facility] [phone] Care Team Personnel Name: HEATH BAUM MD Member Role: Scientist Address: Address: [address] [place] [phone] [place] Name: MACI MACARIO DO Position: P4 Physician - Primary Care Member Role: Primary Care Physician Address: Address: [address] [place] [id number] Name: VESTA EUBANKS Member Role: Dentist Address: Address: [address] [place] [id number] Care Team Related Persons Name: GINA HILL Address: Home [address] [place] [phone] Care Teams (unrecognized sec tion and content) Team Status: Active Member Role Status Dates Maci Becerra DO Family Provider Active Dr. Maci Macario DO Primary Care Provider Active Team Status: Inactive Member Role Status Dates Dr. Maci Macario DO Primary Care Provider Active Dr. Heath Baum MD Attending Provider, Referring P estrella Active Team Status: Active Member Role Status Dates Dr. Maci Macario DO Primary Care Provider Active Team Status: Inactive Member Role Status Dates Dr. Maci Macario DO Primary Care Provider Active Start: June 23, 2024 End: June 23, 2024 Dr. Heath Baum MD Attending Provider Active Start: June 23, 2024 End: June 23, 2024 Dr. Heath Baum MD Referring Provider Active Start: June 23, 2024 End: June 23, 2024 INFORMATION SOURCE (unrecogn ized section and content) DATE CREATED AUTHOR 07/04/2023 [facility] DATE CREATED AUTHOR AUTHOR'S ORGANIZ ATION 07/03/2024 [facility] DATE CREATED AUTHOR AUTHOR'S ORGANIZ ATION 09/21/2024 [facility] FOR RECORDS PERTAINING TO PATIENTS WHO ARE OR HAVE BEEN ENROLLED IN A CHEMICAL DEPENDENCY/SUBSTANCEABUSE PROGRAM, SOME INFORMATION MAY BE OMITTED. This clinical summary was aggregated from multiple sources. Caution should be exercised in using it in the provision of clinical care. This summary normalizes information from multiple sources, and as a consequence, information in this document may materially change the coding, format and clinical context of patient data. In addition, data may be omitted in some cases. CLINICAL DECISIONS SHOULD BE BASED ON THE PRIMARY CLINICAL RECORDS. [facility] [facility]. provides no warranty or guarantee of the accuracy or completeness of information in this document.
[2024-09-22] MEDS: Lactated Ringers 1,000 ML 15 ML IV (06:28)
--- NOTE | 2024-09-22 06:30 | PRE.ANES_ITS ---
ASA Classification* ASA Classification ASA Classification: 2 Assessment & Plan Anesthesia* Anesthesia Assessment Anesthesia Assessment: Discussed sedation and/or anesthesia options, risks, benefits, and alternatives with patient/parents/legal guardian/POA. Questions invited. The patient/parents/legal guardian/POA seems to understand and agrees to proceed with anesthesia plan. Reviewed the physical assessment, medical history, allergy history and patient home medications list prior to surgery/procedure/anesthetic and documented any changes. Performed airway and anesthesia risk assessments. Anesthesia Type Anesthesia Type: MAC History Source History Obtained from:: Patient and Chart Anesthesia Focused Assessment* Temperature: 97.5 F Pulse Rate: 85 Blood Pressure: 155/79 Respiratory Rate: 16 Pulse Ox: 100 Oxygen Delivery Method: Room Air Airway Assessment Mouth opens: >3 cm Mallampati Score: I Teeth Condition: Caps/Crowns (Patient has several crowns. And a left upper permanent bridge. They are all tight.) Neck Range of motion (ROM): Full ROM Focused Labs Anesthesia Preop lab: CBC CHEMISTRY COAG Pre-Assessment Diagnosis/Proposed Procedure Planned Operative Procedure(s): COLONOSCOPY/EGD Anesthesia History Anesthesia History - medical radiation tech: Anesthesia History - medical radiation tech Hx Hospitalization No 09/16/24 14:47 Any Problems With Anesthesia No 09/16/24 14:47 Cholinesterase deficiency No 09/16/24 14:47 You/Your Family Experience No 09/16/24 14:47 fever (hyperthermia) with Relationship Recent Exposure to Contagious No 09/22/24 06:18 Disease Does patient have nerve No 09/16/24 14:47 stimulator Patient instructed to have device shut off --Does patient have Pacemaker No 09/22/24 06:19 or ICD? When Was Last Pacemaker Check QUESTION #4 FULL TEXT: You/Your Family Experience fever (hyperthermia) with Anesthesia Last Oral Intake Last Oral intake: Last Oral Intake NPO since 03:15 09/22/24 06:19 Meds taken in AM with sips of Yes 09/22/24 06:19 water? Meds patient instructed to take am of surgery Any additional information?: Yes NPO since: 03:15 (Patient finished prep at 3:15 AM.) PONV PONV - medical radiation tech: PONV - medical radiation tech Female Yes 09/16/24 14:47 HX of Motion Sickness No 09/16/24 14:47 HX of N/V After Surgery No 09/16/24 14:47 Non-Smoker Yes 09/16/24 14:47 Duration of Surgery greater No 09/16/24 14:47 than 60 minutes Number of Risk Factors 2 09/16/24 14:47 PONV Score Moderate Risk 09/16/24 14:47 Height & Weight Height & Weight: Anesthesia: Height & Weight Height 5 ft 6 in 09/22/24 06:19 Weight: 60.146 kg 09/22/24 06:19 Body Mass Index (BMI) 21.4 09/22/24 06:19 Respiratory Assessment Respiratory Assessment - medical radiation tech: Respiratory Tract Infection Hx - medical radiation tech Hx Respiratory Tract Infection No 09/16/24 14:47 STOP Sleep Apnea STOP Sleep Apnea - medical radiation tech: STOP Sleep Apnea - medical radiation tech Hx Hypertension No 09/16/24 14:47 Hx Sleep Apnea No 09/16/24 14:47 CPAP BIPAP Do you snore loudly (louder No 09/16/24 14:47 than talking or can be heard Do you often feel tired/ No 09/16/24 14:47 fatigued/ sleepy during daytime? Has anyone observed you stop No 09/16/24 14:47 breathing during sleep? STOP Results Negative 09/16/24 14:47 QUESTION #5 FULL TEXT : Do you snore loudly (louder than talking or can be heard through closed doors)? Tobacco Use History Tobacco Use History - medical radiation tech: Tobacco Use History - medical radiation tech Tobacco Use Smoking Status Never smoker 09/16/24 14:47 Hx Tobacco Use No 09/16/24 14:47 Years Smoking Packs Smoked per Day Smoking Cessation Date was within the last 15 years Hx Smoking Cessation Date Hx Smoking Cessation Counseling Hematologic Medial History Hematologic Hx - medical radiation tech: Hematologic Medical Hx - deburrer strip Hx of Blood Transfusion No 09/16/24 14:47 Hx of Transfusion in last 3 No 09/16/24 14:47 Months Date of Last Transfusion (if within last 3 months) Ever experience any problems No 09/16/24 14:47 with transfusion(s)? Specify any problems Hx of Preganancy in last 3 No 09/16/24 14:47 Months Nurse Filling Out Transfusion VCHRISTIN 09/16/24 14:47 & Questions: Date: 09/16/24 09/16/24 14:47 Time: 14:48 09/16/24 14:47 Patient unable to answer at this time (ie. confused, unrespo /Reproduction History /Reproductive History - medical radiation tech: /Reproductive Hx- medical radiation tech Hx Now No 09/16/24 14:47 Gestational Age (in weeks): EDC: Hx Hx Para Hx Section SAB No 09/16/24 14:47 Active Medications Active Medications: Current Medications Generic Name Dose Route Start Last Admin Trade Name Freq PRN Reason Stop Dose Admin Lactated Ringer's 1,000 mls @ 15 mls/hr 09/22/24 06:15 09/22/24 06:28 IV 15 mls/hr .Q48H GUI Administration PFSH Medical History Wears glasses Cancer Post-menopausal Alcohol use Arthritis History of renal disease High cholesterol Back pain Migraine headache Dietary restriction Gastric reflux Non-smoker Asthma COPD (chronic obstructive pulmonary disease) Shortness of breath on exertion Hoarseness Chronic cough Leg cramps History of pain when walking History of stress test History of irregular heartbeat History of Mohs micrographic surgery for skin cancer Home Medications ?Medication ?Instructions ?Recorded ?Last Taken ?Type albuterol sulfate 90 mcg/actuation 1 inh inhalation Q4 -6H PRN 07/14/24 Unknown History breath activated powder inhaler shortness of breath alendronate 70 mg tablet 70 mg PO QWEEK 07/14/24 06/05/14 History biotin 10,000 mcg capsule 10,000 mcg PO DAILY 07/14/24 09/19/24 History fenofibrate nanocrystallized 145 145 mg PO QDAY 09/19/24 History mg tablet fluticasone propionate 50 1 spray intranasal BID 07/1409/22/24 History mcg/actuation nasal spray,suspension glucosamine AHu-D6-Oqmooyamq 1 tab PO QDAY 07/14/24 History pito 1,500 mg-400 unit-100 mg tablet (Osteo Bi-Flex (5-Loxin)) guaifenesin 600 mg tablet, 600 mg PO Q12H PRN cough 09/21/24 History extended release 12 hr (Mucinex) omeprazole magnesium 20 mg 20 mg PO QDAY 07/14/24 06/08/12 History tablet,delayed release (Prilosec OTC) vit C 250 mg-vit E 90 mg-zinc 40 1 tab PO BID 07/14/24 09/21/24 History mg-copper 1 um-gucpkx-nxsobc capsule (PreserVision AREDS-2) xfcrjsu-pjtubjmhhdduz-ovxnijco 250 1 tab PO Q6H PRN pa in 09/16/24 09/21/24 History mg-250 mg-65 mg tablet (Excedrin Extra Strength) erythromycin 5 mg/gram (0.5 %) eye 1 applic LEFT EYE Q HS 09/16/24 09/20/24 History ointment fluticasone propionate 0.05 % 1 applic topical BID PRN PRN rash 09/16/24 Unknown History topical cream loratadine 10 mg tablet (Claritin) 10 mg PO DAILY 08/2009/21/24 History melatonin 3 mg capsule 3 mg PO QHS 09/16/24 5 History multivitamin-iron (hematinic) 27 1 tab PO DAILY 09/18/24 History mg-0.4 mg tablet peg 708-enrycelgmjgz-taochant 1 1 drp EACH EYE DAILY 0 09/16/24 09/22/24 History %-0.2 %-0.2 % eye drops (Artificial Tears ([id number])) Allergy/AdvReac Type Severity Reaction Status Date / Time ciprofloxacin Allergy Unknown Verified 09/22/24 06:13 Penicillins Allergy Unknown Verified 09/22/24 06:13 Sulfa (Sulfonamide Allergy Unknown Verified 09/22/24 06:13 Antibiotics) Surgical History History of total right hip arthroplasty History of total left hip arthroplasty Hx of appendectomy Hx of tubal ligation Hx of colectomy History of carpal tunnel surgery of right wrist Hx of rotator cuff surgery Social History Smoking Status: Never smoker Review of Systems (Anesthesia) ROS Narrative System reviewed and no additional complaints, except as documented. Physical Exam Resp clear to auscultation bilaterally
--- NOTE | 2024-09-22 07:00 | EGD_PTH ---
PATIENT: SAMANTHA HILL LOC: EN U#:[id number] AGE/SX: 79/F ROOM: RE09/22/[address]: Dr. Flakito Cloud DO : 1945 BED: DIS: 09/22/2024 SPEC #: [id number] RECD: 09/22/24 09:40 STATUS: JONO COLTEN #: [id number] KRANTHI: 09/22/24 07:[address]: Flakito Cloud DEPT: SURGICAL PATHOLOGY RECD BY: Ventura Myers ENTERED: 09/22/24 10:15 SP TYPE: EGD BIOPSY REYNA DR: Dr. Tresa Baltazar DO Tissues: A - Esophagus, NOS B - Gastric mucous membrane C - COLON BIOPSY Procedures: Surgery Specimen Level IV HEADER OPERATION: Colonoscopy with biopsy, EGD with biopsy PRE-OP DIAGNOSIS: History of partial colectomy, proctocolitis TISSUE SUBMITTED: A- Distal esophagus biopsy, B- Gastric cardia biopsy, C- Anastomosis colon biopsy MICROSCOPIC DIAGNOSIS A. 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 Stomach, gastric cardia: * Oxyntic mucosa with chronic inflammation * No Helicobacter pylori-like organisms are identified in these H & E stained sections C. Large intestine, anastomosis: * Moderate cryptic architectural distortion with reactive goblet cell epithelium and an increased mixed lymphoplasmacytic and eosinophilic inflammatory cell infiltrate in the lamina propria and with a few areas of acute cryptitis and areas of superficial erosion with an acute inflammatory cell infiltrate * No dysplasia is identified MICROSCOPIC DESCRIPTION Slides are reviewed. GROSS DESCRIPTION A. Received in formalin in a container labeled with the patient's name, date of , and distal esophagus biopsy are 2 mcgrath-pink fragments of mucosal tissue, each measuring 0.3 x 0.3 x 0.3 cm. Submitted in toto in A1. B. Received in formalin in a container labeled with the patient's name, date of , and gastric cardia biopsy are 2 mcgrath-pink strips of mucosal tissue each measuring 0.8 x 0.3 x 0.2 cm. Submitted in toto in B1. C. Received in formalin in a container labeled with the patient's name, date of , and anastomosis colon biopsy are multiple mcgrath-pink fragments of mucosal tissue measuring 0.7 x 0.7 x 0.3 cm in aggregate. Submitted in toto in C1. [facility] 09-22-2024 CPT:24082v4
--- NOTE | 2024-09-22 07:11 | PCM.HP.STD ---
HPI - General General Date of Admission: 09/22/24 Date of Service: 09/22/24 Chief Complaint: Proctocolitis HPI Narrative SAMANTHA HILL, is a 78 F [facility] bright red blood in her stool. Prescribed a course of antibiotics for proctocolitis and discharged CT abd/pelvis 06.28.24; Distal sigmoid and diffuse rectal wall thickening with adjacent soft tissue standing. Findings likely reflect proctocolitis. no drainable fluid collection. Lower ventral abd wall bowel containing hernia without evidence of bowel obstruction. Pt here today for f/u after ED visit for proctocolitis. Pt admits to one day of blood in her stool. She called PCP who recommended presentation to the ED. She is now off the antibiotic. She has had no further episodes of bleeding. 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 Since then she has had looser stools but no other issues with her bowels. Her last colonoscopy was about 5-7 years ago with one polyp. She does take Excedrin on a daily basis for her chronic migraines. She endorses chronic heartburn and has been on PPI for many years. SHe is unsure if she has had an EGD in the past. [facility] Medical History Wears glasses Cancer Post-menopausal Alcohol use Arthritis History of renal disease High cholesterol Back pain Migraine headache Dietary restriction Gastric reflux Non-smoker Asthma COPD (chronic obstructive pulmonary disease) Shortness of breath on exertion Hoarseness Chronic cough Leg cramps History of pain when walking History of stress test History of irregular heartbeat History of Mohs micrographic surgery for skin cancer Home Medications ?Medication ?Instructions ?Recorded ?Last Taken ?Type albuterol sulfate 90 mcg/actuation 1 inh inhalation Q4-6H PRN 07/14/24 Unknown History breath activated powder inhaler shortness of breath alendronate 70 mg tablet 70 mg PO QWEEK 07/14/24 09/18/24 History biotin 10,000 mcg capsule 10,000 mcg PO DAILY 07/14/24 09/19/24 History fenofibrate nanocrystallized 145 145 mg PO QDAY 07/14/24 09/19/24 History mg tablet fluticasone propionate 50 1 spray intranasal BID 07/14/24 09/22/24 History mcg/actuation nasal spray,suspension glucosamine RSr-Q0-Zmvtnytdd 1 tab PO QDAY 07/14/24 09/19/24 History pito 1,500 mg-400 unit-100 mg tablet (Osteo Bi-Flex (5-Loxin)) guaifenesin 600 mg tablet, 600 mg PO Q12H PRN cough 07/14/24 09/21/24 History extended release 12 hr (Mucinex) omeprazole magnesium 20 mg 20 mg PO QDAY 07/14/24 09/21/24 History tablet,delayed release (Prilosec OTC) vit C 250 mg-vit E 90 mg-zinc 40 1 tab PO BID 07/14/24 09/21/24 History mg-copper 1 ze-gsfevv-tadomn capsule (PreserVision AREDS-2) vhsepfk-hyntxnwifqphd-cjfjtjop 250 1 tab PO Q6H PRN pain 09/16/24 09/21/24 History mg-250 mg-65 mg tablet (Excedrin Extra Strength) erythromycin 5 mg/gram (0.5 %) eye 1 applic LEFT EYE QHS 09/16/24 09/20/24 History ointment fluticasone propionate 0.05 % 1 applic topical BID PRN PRN rash 09/16/24 Unknown History topical cream loratadine 10 mg tablet (Claritin) 10 mg PO DAILY 09/16/24 09/21/24 History melatonin 3 mg capsule 3 mg PO QHS 09/16/24 09/19/24 History multivitamin-iron (hematinic) 27 1 tab PO DAILY 09/16/24 09/18/24 History mg-0.4 mg tablet peg 567-pgvcbzxpwhuz-smmwyvxo 1 1 drp EACH EYE DAILY 09/16/24 09/22/24 History %-0.2 %-0.2 % eye drops (Artificial Tears ([id number])) Allergy/AdvReac Type Severity Reaction Status Date / Time ciprofloxacin Allergy Unknown Verified 09/22/24 06:13 Penicillins Allergy Unknown Verified 09/22/24 06:13 Sulfa (Sulfonamide Allergy Unknown Verified 09/22/24 06:13 Antibiotics) Surgical History History of total right hip arthroplasty History of total left hip arthroplasty Hx of appendectomy Hx of tubal ligation Hx of colectomy History of carpal tunnel surgery of right wrist Hx of rotator cuff surgery Social History Smoking Status: Never smoker ROS Constitutional Constitutional: Denies fatigue, fever(s), poor appetite, weight gain or weight loss Gastrointestinal Gastrointestinal: Denies belching, bloating, change in bowel habits, change in stool character, chewing difficulty, coffee ground emesis, constipation, cramping, diarrhea, dyspepsia, dysphagia, early satiety, excessive flatus, fecal incontinence, heartburn, hematemesis, hematochezia, hemorrhoids, loose stools, melena, nausea, odynophagia, rectal bleeding, tenesmus, vomiting or weight changes Vital Signs Vital Signs Vital Signs: 09/22/24 06:18 09/22/24 06:19 09/22/24 06:38 Temperature 97.5 F L 97.5 F L Temperature Source Temporal Pulse Rate 85 85 Respiratory Rate 16 16 Respiratory Pattern Normal Blood Pressure 155/79 H 155/79 H Blood Pressure Mean 104 Blood Pressure Source Monitor Blood Pressure Position Semi-Fowlers Blood Pressure Location Left Arm Pulse Ox 100 100 Oxygen Delivery Method Room Air Room Air Weight Weight: 132 lb 9.6 oz Body Mass Index (BMI) 21.4 Physical Exam Const alert, oriented x3, no apparent distress and healthy appearing General Appearance: cooperative GI normal to inspection, nondistended, normoactive bowel sounds, soft to palpation, non-tender and non-distended Percussion: normal to percussion Rectal Exam: deferred Assessment & Plan Assessment/Plan (1) History of partial colectomy: (2) Proctocolitis: PLAN: Assessment and Plan Assessment and Plan (1) Proctocolitis: Status: Acute Plan: This is a 78 yo female pt here today for evaluation after ED visist for rectal bleeding. Pt had CT abd/pelvis showing thickening in the rectum suggesting proctocolitis. She is s/p partial colectomy in 1992 after severe pseudomembranous colitis. She has 14 inches of colon left. She has chronic loose stools since this surgery. She has never had rectal bleeding prior to this. Pt does endorse daily Excedrin use which could have been a course of her colitis. She will undergo colonoscopy to rule out other process. She has a chronic hx of heartburn and will undergo EGD to assess her upper GI tract as well. -EGD and colonoscopy -f/u after procedure (2) Heartburn: Status: Acute (3) History of partial colectomy: Status: Acute
--- NOTE | 2024-09-22 08:10 | OP.CCLET_ITS ---
09/22/2024 Tresa Moctezuma Do Re : Upper GI endoscopy procedure for Shruti Josue Dear Jose Elias This procedure was performed on September. My impressions and recommendations are as follows: Impressions : - Z-line irregular, 40 cm from the incisors. Biopsied. - Congested and texture changed mucosa in the cardia and gastric body. Biopsied. - No gross lesions in the entire examined duodenum. Recommendations : - Discharge patient to home. - Resume previous diet. - Continue present medications. - Await pathology results. My findings are described in the full procedure note, which is enclosed. If I can be of further assistance, please feel free to contact me at . Sincerely, Flakito Cloud, 09/22/2024 8:09:42 AM This report has been signed electronically.
--- NOTE | 2024-09-22 08:10 | OP.EGD_ITS ---
Patient Name: Shruti Josue Procedure Date: 09/22/2024 7:41 AM Date of : 1945 Age: 79 Procedure: Upper GI endoscopy Indications: Epigastric abdominal pain Providers: Flakito Cloud DO Referring MD: Tresa Moctezuma Do Medicines: Monitored Anesthesia Care Patient Profile: This is a 79 year old female. Refer to note in patient chart for documentation of history and physical. Patient has symptoms of chronic epigastric abdominal pain, chronic dyspepsia and chronic heartburn. Complications: No immediate complications. Procedure: Pre-Anesthesia Assessment: - Prior to the procedure, a History and Physical was performed, and patient medications and allergies were reviewed. The patient is competent. The risks and benefits of the procedure and the sedation options and risks were discussed with the patient. All questions were answered and informed consent was obtained. Patient identification and proposed procedure were verified by the physician in the pre-procedure area. Mental Status Examination: alert and oriented. Airway Examination: normal oropharyngeal airway and neck mobility. Respiratory Examination: clear to auscultation. CV Examination: normal. Prophylactic Antibiotics: The patient does not require prophylactic antibiotics. Prior Anticoagulants: The patient has taken no anticoagulant or antiplatelet agents. ASA Grade Assessment: II - A patient with mild systemic disease. After reviewing the risks and benefits, the patient was deemed in satisfactory condition to undergo the procedure. The anesthesia plan was to use monitored anesthesia care (MAC). Immediately prior to administration of medications, the patient was re-assessed for adequacy to receive sedatives. The heart rate, respiratory rate, oxygen saturations, blood pressure, adequacy of pulmonary ventilation, and response to care were monitored throughout the procedure. The physical status of the patient was re-assessed after the procedure. After obtaining informed consent, the endoscope was passed under direct vision. Throughout the procedure, the patient's blood pressure, pulse, and oxygen saturations were monitored continuously. The Colonoscope was introduced through the mouth, and advanced to the fourth part of the duodenum. Small bowel enteroscopy was deemed necessary. The upper GI endoscopy was accomplished without difficulty. The patient tolerated the procedure well. Scope In: 7:48:26 AM Scope Out: 7:52:21 AM Total Procedure Duration Time 0 hours 3 minutes 55 seconds Findings: The Z-line was irregular and was found 40 cm from the incisors. Biopsies were taken with a cold forceps for histology. Verification of patient identification for the specimen was done. Estimated blood loss was minimal. Diffuse mild mucosal changes characterized by congestion and altered texture were found in the cardia and in the gastric body. Biopsies were taken with a cold forceps for histology. Verification of patient identification for the specimen was done. Estimated blood loss was minimal. Biopsies were taken with a cold forceps for Helicobacter pylori testing. Verification of patient identification for the specimen was done. Estimated blood loss was minimal. No gross lesions were noted in the entire examined duodenum. Impression: - Z-line irregular, 40 cm from the incisors. Biopsied. - Congested and texture changed mucosa in the cardia and gastric body. Biopsied. - No gross lesions in the entire examined duodenum. Recommendation: - Discharge patient to home. - Resume previous diet. - Continue present medications. - Await pathology results. Procedure Code(s): --- Professional --- 83908, Small intestinal endoscopy, enteroscopy beyond second portion of duodenum, not including ileum; with biopsy, single or multiple CPT copyright 2021 [employer]. All rights reserved. The codes documented in this report are preliminary and upon financial services auditor review may be revised to meet current compliance requirements. Flakito Cloud DO 09/22/2024 8:09:42 AM This report has been signed electronically. Number of Addenda: 0 Note Initiated On: 09/22/2024 7:41 AM
--- NOTE | 2024-09-22 08:10 | PCM.POST.ANE ---
Anesthesia: Postop Eval I Current Vital Signs Temperature: 98.7 F Pulse Rate: 78 Blood Pressure: 107/69 Respiratory Rate: 18 Pulse Ox: 97 Assessment Airway patent: Yes Spontaneous unlabored respirations: Yes nausea: No Vomiting: No Anesthesia Complication: No Fluid Hydration Crystalloid volume administer (ml): 300 Total IV fluid infused: 300 Progress Note Anesthesia document: Postop Eval 1 completed: Yes
--- NOTE | 2024-09-22 08:14 | OP.COLON_ITS ---
Patient Name: Shruti Josue Procedure Date: 09/22/2024 7:52 AM Date of : 1945 Age: 79 Procedure: Colonoscopy Indications: Disease activity assessment of Crohn's disease of the small bowel and colon Providers: Flakito Cloud DO Referring MD: Tresa Moctezuma Do Medicines: Monitored Anesthesia Care Patient Profile: This is a 79 year old female. Refer to note in patient chart for documentation of history and physical. Patient has symptoms of chronic epigastric abdominal pain, chronic dyspepsia and chronic heartburn. Last Colonoscopy: several years ago. Complications: No immediate complications. Procedure: Pre-Anesthesia Assessment: - Prior to the procedure, a History and Physical was performed, and patient medications and allergies were reviewed. The patient is competent. The risks and benefits of the procedure and the sedation options and risks were discussed with the patient. All questions were answered and informed consent was obtained. Patient identification and proposed procedure were verified by the physician in the pre-procedure area. Mental Status Examination: alert and oriented. Airway Examination: normal oropharyngeal airway and neck mobility. Respiratory Examination: clear to auscultation. CV Examination: normal. Prophylactic Antibiotics: The patient does not require prophylactic antibiotics. Prior Anticoagulants: The patient has taken no anticoagulant or antiplatelet agents. ASA Grade Assessment: II - A patient with mild systemic disease. After reviewing the risks and benefits, the patient was deemed in satisfactory condition to undergo the procedure. The anesthesia plan was to use monitored anesthesia care (MAC). Immediately prior to administration of medications, the patient was re-assessed for adequacy to receive sedatives. The heart rate, respiratory rate, oxygen saturations, blood pressure, adequacy of pulmonary ventilation, and response to care were monitored throughout the procedure. The physical status of the patient was re-assessed after the procedure. After I obtained informed consent, the scope was passed under direct vision. Throughout the procedure, the patient's blood pressure, pulse, and oxygen saturations were monitored continuously. The Colonoscope was introduced through the anus and advanced to the ileocolonic anastomosis. The colonoscopy was performed without difficulty. The patient tolerated the procedure well. The quality of the bowel preparation was adequate. The terminal ileum was photographed. Scope In: 7:53:34 AM Scope Out: 8:02:35 AM Total Procedure Duration Time 0 hours 9 minutes 1 second Findings: The perianal and digital rectal examinations were normal. There was evidence of a prior end-to-side ileo-colonic anastomosis in the sigmoid colon. This was patent and was characterized by erythema, friable mucosa, a hemorrhagic appearance and ulceration. The anastomosis was traversed. Biopsies were taken with a cold forceps for histology. Verification of patient identification for the specimen was done. Estimated blood loss was minimal. Inflammation characterized by erythema, friability, granularity and aphthous ulcerations was found as patches surrounded by normal mucosa in the recto-sigmoid colon. The inflammation was moderate in severity, and when compared to previous examinations, the findings are new. Biopsies were taken with a cold forceps for histology. Verification of patient identification for the specimen was done. Estimated blood loss was minimal. The terminal ileum appeared normal. Impression: - Patent end-to-side ileo-colonic anastomosis, characterized by erythema, friable mucosa, a hemorrhagic appearance and ulceration. Biopsied. - Colitis. Inflammation was found in the recto-sigmoid colon. This was moderate in severity, new compared to previous examinations. Biopsied. - The examined portion of the ileum was normal. Recommendation: - Discharge patient to home. - Resume previous diet. - Continue present medications. - Await pathology results. - Repeat colonoscopy date to be determined after pending pathology results are reviewed for surveillance. Procedure Code(s): --- Professional --- 76376, Colonoscopy, flexible; with biopsy, single or multiple CPT copyright 2021 [employer]. All rights reserved. The codes documented in this report are preliminary and upon personal loan specialist review may be revised to meet current compliance requirements. Flakito Cloud DO 09/22/2024 8:13:57 AM This report has been signed electronically. Number of Addenda: 0 Note Initiated On: 09/22/2024 7:52 AM
--- NOTE | 2024-09-22 08:14 | OP.CCLET_ITS ---
09/22/2024 Tresa Moctezuma Do Re : Colonoscopy procedure for Shruti Josue Dear Jose Elias This procedure was performed on September. My impressions and recommendations are as follows: Impressions : - Patent end-to-side ileo-colonic anastomosis, characterized by erythema, friable mucosa, a hemorrhagic appearance and ulceration. Biopsied. - Colitis. Inflammation was found in the recto-sigmoid colon. This was moderate in severity, new compared to previous examinations. Biopsied. - The examined portion of the ileum was normal. Recommendations : - Discharge patient to home. - Resume previous diet. - Continue present medications. - Await pathology results. - Repeat colonoscopy date to be determined after pending pathology results are reviewed for surveillance. My findings are described in the full procedure note, which is enclosed. If I can be of further assistance, please feel free to contact me at . Sincerely, Flakito Cloud DO 09/22/2024 8:13:57 AM This report has been signed electronically.
--- NOTE | 2024-09-22 08:42 | POSTOPAN2_ITS ---
Anesthesia Postop Eval I Sum Postop Eval Completion status Anesthesia document: Postop Eval 1 completed: Yes Anesthesia Postop Eval I Summary Anesthesia Postop Eval I Summary: Anesthesia Postop Eval I: Assessment Summary Airway patent Yes 09/22/24 08:10 MEDICAL MASSAGE [email or web address] Spontaneous unlabored Yes 09/22/24 08:10 MEDICAL MASSAGE [email or web address] respirations Mental status nausea No 09/22/24 08:10 MEDICAL MASSAGE [email or web address] Vomiting No 09/22/24 08:10 MEDICAL MASSAGE [email or web address] Anesthesia Postop Eval I: Fluid Summary Crystalloid volume administer 300 09/22/24 08:10 MEDICAL MASSAGE [email or web address] (ml) Colloids volume administered ( ml) Blood Product volume administered (ml) Total IV fluid infused 300 09/22/24 08:10 MEDICAL MASSAGE [email or web address] Anesthesia Postop Eval I: Summary Notes Anesthesia Complication No 09/22/24 08:10 MEDICAL MASSAGE [email or web address] Anesthesia Complication Comment: Post-operative progress note Anesthesia: Postop Eval II Evaluation Mental status: Awake Pain Level: 0 nausea: No Vomiting: No
--- NOTE | 2024-09-22 08:42 | PCM.POSTANE2 ---
Anesthesia Postop Eval I Sum Postop Eval Completion status Anesthesia document: Postop Eval 1 completed: Yes Anesthesia Postop Eval I Summary Anesthesia Postop Eval I Summary: Anesthesia Postop Eval I: Assessment Summary Airway patent Yes 09/22/24 08:10 [email or web address] Spontaneous unlabored Yes 09/22/24 08:10 STRETCHER [email or web address] respirations Mental status nausea No 09/22/24 08:10 STRETCHER [email or web address] Vomiting No 09/22/24 08:10 [email or web address] [email or web address] Anesthesia Postop Eval I: Fluid Summary Crystalloid volume administer 300 09/22/24 08:10 [email or web address] [email or web address] (ml) Colloids volume administered ( ml) Blood Product volume administered (ml) Total IV fluid infused 300 09/22/24 08:10 [email or web address] [email or web address] Anesthesia Postop Eval I: Summary Notes Anesthesia Complication No 09/22/24 08:10 STRETCHER [email or web address].[email or web address] Anesthesia Complication Comment: Post-operative progress note Anesthesia: Postop Eval II Evaluation Mental status: Awake Pain Level: 0 nausea: No Vomiting: No
== END 2024-09-22 08:40 | disposition home or self-care (01) ==
LOC: EN 05:45 → AC 05:48
PROVIDERS: PCP Family Medicine; Referring Provider Family Medicine; Visit Provider Internal Medicine Gastroenterology
PROC: 0DJD8ZZ Inspection of Lower Intestinal Tract, Via Natural or Artificial Opening Endoscopic (ICD-10-PCS; CPT 45378; principal; 2024-09-22 06:55)
DX: K22.70 Barrett's esophagus without dysplasia (principal); J44.9 Chronic obstructive pulmonary disease, unspecified; K52.9 Noninfective gastroenteritis and colitis, unspecified; K31.89 Other diseases of stomach and duodenum; K62.89 Other specified diseases of anus and rectum; K21.9 Gastro-esophageal reflux disease without esophagitis; G89.29 Other chronic pain; Z90.49 Acquired absence of other specified parts of digestive tract; Z98.0 Intestinal bypass and anastomosis status; Z79.899 Other long term (current) drug therapy
CPT/HCPCS: 44361; 45380; 88305; J2405

== ENCOUNTER → 2024-11-04 | Outpatient (CLI) | payer SELFPAY ==
[2024-11-04 12:00] LABS: SERUM TEARS COLLECTION SPECIMEN PROCESSED
== END | disposition home or self-care (01) ==
LOC: LAB 09:55
PROVIDERS: PCP Family Medicine; Referring Provider Ophthalmology; Visit Provider Ophthalmology
DX: H04.123 Dry eye syndrome of bilateral lacrimal glands (principal)

== ENCOUNTER → 2025-01-10 | Outpatient (CLI) | payer MEDICARE, SELFPAY ==
[2025-01-12 08:08] LABS: Calprotectin, Stool 703 ug/g (0-120)
== END | disposition home or self-care (01) ==
LOC: LAB 09:55
PROVIDERS: PCP Family Medicine; Referring Provider Student in an Organized Health Care Education/Training Program; Visit Provider Student in an Organized Health Care Education/Training Program
DX: K51.30 Ulcerative (chronic) rectosigmoiditis without complications (principal)
CPT/HCPCS: 83993

== ENCOUNTER → 2025-03-22 | Outpatient (CLI) | payer MEDICARE, SELFPAY ==
[2025-03-22 12:09] LABS: SERUM TEARS COLLECTION SPECIMEN PROCESSED
== END | disposition home or self-care (01) ==
LOC: LAB 10:03
PROVIDERS: PCP Family Medicine; Referring Provider Ophthalmology; Visit Provider Ophthalmology
DX: H04.123 Dry eye syndrome of bilateral lacrimal glands (principal)
CPT/HCPCS: 36415